=== PATIENT | male | born 1960 | race Caucasian/White ===

== ENCOUNTER 2025-06-11 09:43 | Outpatient (CLI) | payer OTHER, SELFPAY ==
--- OUTSIDE RECORDS SUMMARY | 2025-06-11 09:48 | XMS_ITS | Encounter Summary ---
Author Organization [employer] ([place], [place], [place], [place], [place]) Address [address] [place] [address] Care Team Providers Care Manager Personal Name Role Phone Unavailable Primary Care Provider Unavailabl e Encounter Details Date Type Department Care Team (Late st Contact Info) Description 01/24/2019 Transcribed Document [facility] [place] [address] [place] [address] ProviderRod MD [address] [place] [address] Social History Tobacco Use Types Packs/Day Years Used Date Smoking Tobacco: Never Assessed Sex and Gender Information Value Date Recorded Sex Assigned at Male 01/26/2022 5:05 PM CDT Legal Sex Male 5:05 PM CDT Gender Identity Male 01/26/2022 5:05 PM CDT Sexual Orientation Not on file documented as of this encounter Miscellaneous Notes * Cerner Conversion Note - Rod Hills MD - 01/24/2019 11:45 AM CDT Pre Procedure Adult Entered On: 01/24/2019 11:51 EDT Performed On: 01/24/2019 11:45 EDT by Bonnie Steven Rn Height and Weight, Clinical Dosing Height Source : Stated Height Entry Format : [place] Height, Feet : 5 ft(Converted to: 152 cm, 60 Inch) Height, Inches : 6 Inch(Converted to: 0 ft 6 Inch, 15.24 cm) Clinical Height : 167.64 cm Weight Source : Standing scale Weight Entry Format : [place] Clinical Dosing Weight : 83 kg Weight, Pounds : 182.6 lb Body Surface Area (BSA) : 1.93 m2 Body Mass Index : 29.5 kg/m2 (HI) [place] Body Weight : 63 kg Bonnie Steven Rn - 01/24/2019 11:45 EDT Health Histories Smoking Status : Former smoker, quit more than 30 days ago Smokeless Tobacco Status : Never Bonnie Steven Rn - 01/24/2019 11:45 EDT Social History (As Of: 01/24/2019 11:51:14 EDT) Tobacco: Former smoker, quit more than 30 days ago Smoking Status. (Last Updated: 08/09/2018 13:13:56 EST by Ijeoma Gonzalez RN) Alcohol: Alcohol Use History No. (Last Updated: 08/09/2018 13:14:01 EST by Ijeoma Gonzalez RN) Substance Abuse: Drug Use Hx: No. Use in Last 12 Months: No. (Last Updated: 08/09/2018 13:14:07 EST by Ijeoma Gonzalez RN) Nutrition/Health: Caffeine intake amount: 2 cans daily. (Last Updated: 08/09/2018 13:14:15 EST by Ijeoma Gonzalez RN) Infectious Disease History Infectious Disease History : Chicken pox/Shingles, Influenza, Measles, Mumps Fever/Chills Last 48 Hours : No Travel To Regions with Travel Advisories : No Travel Outside [place] Within Last 30 Days : No Contact With Traveler to Advisory Region : No Tuberculosis Symptoms : None Bonnie Steven Rn - 01/24/2019 11:45 EDT Anesthesia/Transfusion History Family History of Anesthesia Reaction : No prior transfusion(s) Transfusion History : Prior anesthesia reaction Family History of Anesthesia Reaction : None Bonnie Steven Rn - 01/24/2019 11:45 EDT Functional Assessment Living Situation : Home Patient Lives With : Alone Current Home Treatments : CPAP Bonnie Steven Rn - 01/24/2019 11:45 EDT Psychosocial History Currently in Unsafe Situation : No Tried to Harm Yourself in the Past? : No Thoughts of Harming/Killing Yourself : No Bonnie Steven Rn - 01/24/2019 11:45 EDT Advance Directive Patient has Advance Directive *Q : No, patient refuses Advance Directive information Bonnie Steven Rn - 01/24/2019 11:45 EDT Teaching/Learning Assessment Barriers To Learning : None evident Individuals Taught : Patient Readiness to Learn : Cooperative Highest Level of Education : High school Baseline Knowledge of Topic : Good Readiness to Learn : Explanation, Printed materials Learning Style Preferences Patient : Printed materials, Verbal explanation Learning Style Preferences Family : Printed materials, Verbal explanation Bonnie Steven Rn - 01/24/2019 11:45 EDT General Info Want Family/Rep/Phys Notified of Admit : Yes Name/Contact Info Fam/Rep Notified Adm : na Name/Contact Info Physician Notified Adm : Tyron Downs Emergency Contact #1 : Lena Olvera Emergency Contact #1 Phone Number : [phone] Emergency Contact #1 Relationship : life partner Emergency Contact #2 : na Emergency Contact #2 Phone Number : na Emergency Contact #2 Relationship : na Primary Language : Gambian Communication Barrier : None Bonnie Steven Rn - 01/24/2019 11:45 EDT Sleep Apnea Risk Assmt BiPAP/CPAP Ordered for Home Use : Yes Hx of Obstructive Sleep Apnea Diagnosis : Yes BiPAP/CPAP Used at Home : Yes Age over 50 Years Old : Yes Gender Male : Yes Bonnie Steven Rn - 01/24/2019 11:45 EDT Gerald Scale Gerald Sensory Perception : No impairment Gerald Moisture : Rarely moist Gerald Activity : Walks frequently Gerald Mobility : No limitation Gerald Nutrition : Adequate Gerald Friction and Shear : No apparent problem Gerald Score : 22 Bonnie Steven Rn - 01/24/2019 11:45 EDT Pain Assessment Pain Assessment : Initial assessment Pain Scale Goal : 0 Pain Scale Used : 0-10 Scale Bonnie Steven Rn - 01/24/2019 11:45 EDT Fall Risk Scales ABCs Fall Injury Risk Identification : None TRAN Hx Falls Immediate/Within 3 Months : No Tran Secondary Diagnosis : No TRAN Use of Ambulatory Aid : None TRAN IV Therapy or IV Access : Yes Tran Gait/Transferring : Normal, bedrest, immobile Tran Mental Status : Oriented to own ability Tran Fall Risk Score : 20 TRAN Fall Scale Risk Level : 0-24 Low Risk [place] Fall Interventions : Adequate lighting, Bed in low position, Upper side-rails up, Wheels locked Bonnie Steven Rn - 01/24/2019 11:45 EDT Valuables and Belongings Valuables and Belongings : Clothing Clothing : Common streetwear Clothing Disposition : Bedside Bonnie Steven Rn - 01/24/2019 11:45 EDT Pain Scale Intensity : 0 Bonnie Steven Rn - 01/24/2019 11:45 EDT Image 4 - Images currently included in the form version of this document have not been included in the text rendition version of the form. documented in this encounter Plan of Treatment Not on file documented as of this encounter Visit Diagnoses Not on filedocumented in this encounter
--- OUTSIDE RECORDS SUMMARY | 2025-06-11 09:48 | XMS_ITS | Encounter Summary ---
Author Organization [employer] ([place], [place], [place], [place], [place]) Address [address] [place] [address] Care Team Providers Care Client Care Manager Name Role Phone Unavailable Primary Care Provider Unavailabl e Encounter Details Date Type Department Care Team (Late st Contact Info) Description 06/13/2019 Transcribed Document [facility] [place] Family Medicine [address] [place] [address] ProviderRod MD [address] [place] [address] Social History Tobacco Use Types [...] Conversion Note - Rod Hills MD - 06/13/2019 12:35 PM PIPE BOWL PAINT TRIMMER Pre Procedure Adult Entered On: 06/13/2019 12:40 EST Performed On: 06/13/2019 12:35 EST by BRENDAN CLEMENTS RN Height and Weight, Clinical Dosing Height Source : Stated Height Entry Format : [place] Height, Feet : 5 ft(Converted to: 152 cm, 60 Inch) Height, Inches : 6 Inch(Converted to: 0 ft 6 Inch, 15.24 cm) Clinical Height : 167.64 cm Weight Source : Standing scale Weight Entry Format : [place] Clinical Dosing Weight : 82.9 kg Weight, Pounds : 182 lb Weight, Ounces : 6 oz Body Surface Area (BSA) : 1.92 m2 Body Mass Index : 29.5 kg/m2 (HI) [place] Body Weight : 63 kg BRENDAN CLEMENTS RN - 06/13/2019 12:35 EST Health Histories Smoking Status : Former smoker, quit more than 30 days ago Smokeless Tobacco Status : Never BRENDAN CLEMENTS RN - 06/13/2019 12:35 EST Social History (As Of: 06/13/2019 12:40:36 EST) Tobacco: Former smoker, quit more than 30 [...] Region : No Tuberculosis Symptoms : None BRENDAN CLEMENTS RN - 06/13/2019 12:35 EST Anesthesia/Transfusion History Family History of Anesthesia Reaction : No prior transfusion(s) Transfusion History : Prior anesthesia reaction Family History of Anesthesia Reaction : None BRENDAN CLEMENTS RN - 06/13/2019 12:35 EST Functional Assessment Living Situation : Home Current Home Treatments : Apnea monitoring BRENDAN CLEMENTS RN - 06/13/2019 12:35 EST [place] Suicide Severity Rating Scale (C-SSRS) CSSRS Past Month Wish to be : No CSSRS Past Month Suicidal Thoughts : No CSSRS Lifetime Suicide Behavior : No Suicide Severity Rating Score : 0 Suicide Severity Rating : No Additional Care Required at this time BRENDAN CLEMENTS RN - 06/13/2019 12:35 EST Psychosocial History Currently in Unsafe Situation : No BRENDAN CLEMENTS RN - 06/13/2019 12:35 EST Advance Directive Patient has Advance Directive *Q : No, patient refuses Advance Directive information BRENDAN CLEMENTS RN - 06/13/2019 12:35 EST General Info Want Family/Rep/Phys Notified of Admit : No Emergency Contact #1 : Pabloanamaria Heriberto Emergency Contact #1 Phone Number : here Emergency Contact #1 Relationship : sister Emergency Contact #2 : none Emergency Contact #2 Phone Number : none Emergency Contact #2 Relationship : none Chief Complaint : Abd pain Information Obtained From : Patient Primary Language : Montenegrin Communication Barrier : None BRENDAN CLEMENTS RN - 06/13/2019 12:35 EST Sleep Apnea Risk Assmt BiPAP/CPAP Ordered for Home Use : Yes Hx of Obstructive Sleep Apnea Diagnosis : Yes BiPAP/CPAP Used at Home : Yes Age over 50 Years Old : Yes Gender Male : Yes BRENDAN CLEMENTS RN - 06/13/2019 12:35 EST Gerald Scale Gerald Sensory Perception : No impairment Gerald Moisture : Rarely moist Gerald Activity : Walks frequently Gerald Mobility : No limitation Gerald Nutrition : Excellent Gerald Friction and Shear : No apparent problem Gerald Score : 23 BRENDAN CLEMENTS RN - 06/13/2019 12:35 EST Fall Risk Scales ABCs Fall Injury Risk [...] Scale Risk Level : 0-24 Low Risk [place] Fall Interventions : Adequate lighting, Assistive devices within reach, Bed in low position, Call device within reach, Fall prevention handout/education per facility policy, Frequent orientation to call device, Frequent orientation to surroundings, Hourly comfort/safety rounds, Personal items within reach, Reinforced to call for assistance before getting out of bed, Room free of clutter/spills, Upper side-rails up, Wheels locked, Wires/Cords secured Fall Moderate to High Risk Interventions : 1:1 observation Fall Risk Scale Calc Temp : 0 BRENDAN CLEMENTS RN - 06/13/2019 12:35 EST Valuables and Belongings Valuables and Belongings : Clothing Clothing : Common streetwear Clothing Disposition : Bedside BRENDAN CLEMENTS RN - 06/13/2019 12:35 EST Electronically signed by [facility] Conversion Staff Toxicologist Cerner at 11/18/2022 8:16 AM CDT documented in this encounter Plan of Treatment Not on file documented as of this encounter Visit Diagnoses Not on filedocumented in this encounter
--- OUTSIDE RECORDS SUMMARY | 2025-06-11 09:48 | XMS_ITS | Encounter Summary ---
Author Organization [employer] ([place], [place], [place], [place], [place]) Address [address] [place] [address] Care Team Providers Care Retail Key Holder Name Role Phone Unavailable Primary Care Provider Unavailabl e Encounter Details Date Type Department Care Team (Late st Contact Info) Description 08/09/2018 Transcribed Document [facility] [place] Family Medicine [facility] [place] [address] ProviderRod MD [address] [place] [id number] Social History Tobacco Use Types Packs/Day Years Used Date Smoking Tobacco: Never Assessed Sex and Gender Information Value Date Recorded Sex Assigned at Male 01/26/2022 5:05 PM CDT Legal Sex Male 5:05 PM CDT Gender Identity Male 01/26/2022 5:05 PM CDT Sexual Orientation Not on file documented as of this encounter Miscellaneous Notes * Cerner Conversion Note - Rod Hills MD - 08/09/2018 1:50 PM PRODUCTION OFFICER [address] , [place] [address] Patient Copy Patient Information: Name: JULIO OWEN Current Date: 08/09/2018 13:50:55 : 1960 Patient Address: [address] [place] [id number] Patient Attending Physician: PRECIOUS GALARZA MD-REGINALDO Primary Care Provider: ELY NASH MD-[facility] Primary Care Provider Discharge Diagnosis: Weight on Admission: 186 lb, 0 oz Comment: Discharge Instructions: Immunizations Documented During Stay: No Immunizations Found Heart Failure Discharge Instructions (if any): Stroke Related Discharge Instructions (if any): Warfarin Related Discharge Instructions (if any): Final Medication List: Other Medications atropine/hyoscyamine/PB/scopolamine () Oral four times a day (before meals and at bedtime). bifidobacterium-lactobacillus (Probiotic Formula oral capsule) Oral Every Day. clopidogrel (clopidogrel 75 mg oral tablet) 1 Tablet(s) Oral Every Day. multivitamin (Multi Vitamin+) omega-3 polyunsaturated fatty acids (Fish Oil) Oral. zolpidem At Bedtime. Patient Allergies: No Known Allergies Medication Instructions: Take your medications faithfully. Do NOT skip medication. Do NOT stop taking medications without the direction of a physician. Carry a list of your medications with you at all times, and take this medication list with you to your first follow up visit. Report any side effects. Avoid herbal remedies unless discussed with your physician. As part of your treatment plan, your physician may have prescribed a limited course of a controlled substance. This medication may be given to help people with moderate or severe pain or for other medical conditions, but there are risks involved with treatment. Common side effects may include nausea, constipation, drowsiness, sweating, itching, dry mouth, and rash. More serious side effects may include cognitive and motor impairment, like problems with thinking, concentrating, alertness, and movement (e.g. slowed reflexes), and driving and operating heavy machinery can be dangerous. It is important for you to talk to your physician if you have these side effects or questions. These controlled substances can produce physical dependence and be habit-forming if taken for an extended period of time, which means that the body has gotten used to them and may experience withdrawal symptoms if they are abruptly stopped. Withdrawal symptoms can include runny nose, sweating, goose bumps, diarrhea, abdominal cramping, rapid heartbeat, difficulty sleeping, and nervousness. Patient education materials: Endoscopic Retrograde Cholangiopancreatography (ERCP), Care After Refer to this sheet in the next few weeks. These instructions provide you with information on caring for yourself after your procedure. Your health care provider may also give you more specific instructions. Your treatment has been planned according to current medical practices, but problems sometimes occur. Call your health care provider if you have any problems or questions after your procedure. WHAT TO EXPECT AFTER THE PROCEDURE After your procedure, it is typical to feel: ??? Soreness in your throat. ? Sick to your stomach (nauseous). ? Bloated. ??? Dizzy. ? Fatigued. HOME CARE INSTRUCTIONS ??? Have a friend or family member stay with you for the first 24 hours after your procedure. ??? Start taking your usual medicines and eating normally as soon as you feel well enough to do so or as directed by your health care provider. SEEK MEDICAL CARE IF: ??? You have abdominal pain. ? You develop signs of infection, such as: ? ? Chills. ? ? Feeling unwell. ? SEEK IMMEDIATE MEDICAL CARE IF: ??? You have difficulty swallowing. ??? You have worsening throat, chest, or abdominal pain. ??? You vomit. ??? You have bloody or very black stools. ??? You have a fever. This information is not intended to replace advice given to you by your health care provider. Make sure you discuss any questions you have with your health care provider. Document Released: 05/08/2014 Document Reviewed: 05/08/2014 [employer] Interactive Patient Education ? 2017 [employer] CIGARETTE SMOKING: The facts are clear, cigarette smoking will shorten your life. Smoking can cause many illnesses along the way. As a healthcare provider, we recommend that you stop smoking. Assistance with quitting is available by contacting 2-764-QFUX-NOW. This is a free resource providing counseling, support, and referral. Or you may contact your personal physician. STROKE is an EMERGENCY [employer] ACT F.A.S.T! FACE ?? Facial droop ?? Uneven smile ARM ?? Arm numbness ?? Arm weakness SPEECH ?? Slurred speech ?? Difficulty speaking or understanding TIME ?? Call 911 and get to the hospital immediately Have the ambulance go to the nearest stroke center. STROKE Risk Factors High blood pressure High cholesterol Heart Disease Diabetes Smoking Heavy alcohol use Physical inactivity and obesity Atrial Fibrillation (irregular heartbeat) Family history of stroke Reminder: Be sure to sign up for the [employer] patient portal, which gives you 21/02 access to your medical information ??? including these discharge instructions ??? using your computer, smartphone, or tablet. Just go to [facility] to get started. Questions? Call . [facility] would like to thank you for allowing us to assist you with your healthcare needs. BRAYDEN Weiner BENJAMIN DAV, (or insurance claim representative) have received the above patient education materials/instructions and have verbalized understanding: Patient Signature _ Date/Time Patient Residential Construction Instructor Signature (if needed) Date/Time Clinician/Hospital Residential Construction Instructor Signature (if needed) Date/Time Electronically signed by Alpa, [facility] Conversion Corporate Communications Associate Cerner at 11/18/2022 7:50 AM CDT documented in this encounter Plan of Treatment Not on file documented as of this encounter Visit Diagnoses Not on filedocumented in this encounter
--- OUTSIDE RECORDS SUMMARY | 2025-06-11 09:48 | XMS_ITS | Encounter Summary ---
Author Organization [employer] ([place], [place], [place], [place], [place]) Address [address] [place] [address] Care Team Providers Care Sales Agent Pest Control Service Name Role Phone Unavailable Primary Care Provider Unavailabl e Encounter Details Date Type Department Care Team (Late st Contact Info) Description 06/13/2019 Transcribed Document [facility] [place] [facility] [place] [address] ProviderRod MD [address] [place] [id number] Social History Tobacco Use Types Packs/Day Years Used Date Smoking Tobacco: Never Assessed Sex and Gender Information Value Date Recorded Sex Assigned at Male 01/26/2022 5:05 PM CDT Legal Sex Male 5:05 PM CDT Gender Identity Male 01/26/2022 5:05 PM CDT Sexual Orientation Not on file documented as of this encounter Miscellaneous Notes * Cerner Conversion Note - Rod Hills MD - 06/13/2019 2:31 PM TREATMENT PLANT OPERATOR Patient: JULIO OWEN Age: 59 years Sex: Male : 1960 Associated Diagnoses: None Author: PRECIOUS VALDES MD-[facility] Consultation/H&P Date of Service: June 13, 2019 Handle Machine Operator: Precious Valdes II, M.D. History of Present Illness: Mr. Owen is a 59-year-old gentleman with chronic right upper quadrant abdominal pain and sphincter of Oddi dysfunction. The patient has had clinical improvement with prior biliary sphincterotomy. His last ERCP was in December 2018. The patient has had recurrence of pain with some itching. He reports bloating, pain and occasional nausea. He has some gassiness. He has been on MiraLAX plus Konsyl for his obstipation. He also takes Creon and hyoscyamine. He has been on buspirone. His liver and pancreatic chemistries have been normal. He did get relief with ERCP in August 2018. Physical Examination: General: Well-developed well-nourished patient in no acute distress HEENT: EOMI anicteric Neck: Supple no lymphadenopathy Chest: Clear to auscultation Cardiovascular: Regular rate and rhythm Abdomen: Normoactive bowel sounds, mild distention, tenderness in the right upper quadrant, no rebound or guarding, no masses, palpable stool and gas present Extremities: No edema Skin: No rashes or ecchymosis Neurologic: Nonfocal Labs: Normal liver and high-grade chemistries Impression/Plan: 1. Recurrent right upper quadrant abdominal pain with history of sphincter of Oddi dysfunction. I will repeat ERCP since he has not achieved relief since his sphincterotomy in August 2018. We have discussed the risks benefits and alternatives. documented in this encounter Plan of Treatment Not on file documented as of this encounter Visit Diagnoses Not on filedocumented in this encounter
--- OUTSIDE RECORDS SUMMARY | 2025-06-11 09:48 | XMS_ITS | Encounter Summary ---
Author Organization [employer] ([place], [place], [place], [place], [place]) Address [address] [place] [address] Care Team Providers Care Land Measurer Name Role Phone Unavailable Primary Care Provider Unavailabl e Encounter Details Date Type Department Care Team (Late st Contact Info) Description 08/09/2018 Transcribed Document [facility] [place] [facility] [place] [address] ProviderRod MD [address] [place] [address] Social History Tobacco Use Types [...] Note - Rod Hills MD - 08/09/2018 3:52 PM ART CRITIC Patient Education Materials Follows: Endoscopic Retrograde Cholangiopancreatography (ERCP), Care After Refer [...] provider. Document Released: 05/08/2014 Document Reviewed: 05/08/2014 Else[employer] Interactive Patient Education ? 2017 [employer] documented in this encounter Plan of Treatment Not on file documented as of this encounter Visit Diagnoses Not on filedocumented in this encounter
--- OUTSIDE RECORDS SUMMARY | 2025-06-11 09:48 | XMS_ITS | Referral Summary ---
Author Organization [facility] ([place], [place], [place], [place], [place]) Address [address] [place] [address] Care Team Providers Care Sales Performance Analyst Name Role Phone Unavailable Primary Care Provider Unavailabl e Social History Tobacco Use Types Packs/Day Years Used Date Smoking Tobacco: Never Assessed Sex and Gender Information Value Date Recorded Sex Assigned at Male 01/26/2022 5:05 PM CDT Legal Sex Male 5:05 PM CDT Gender Identity Male 01/26/2022 5:05 PM CDT Sexual Orientation Not on file Plan of Treatment Not on file
--- OUTSIDE RECORDS SUMMARY | 2025-06-11 09:48 | XMS_ITS | Encounter Summary ---
Author Organization [employer] ([place], [place], [place], [place], [place]) Address [address] [place] [address] Care Team Providers Care Call Specialist Name Role Phone Unavailable Primary Care Provider Unavailabl e Encounter Details Date Type Department Care Team (Late st Contact Info) Description 06/13/2019 Transcribed Document [facility] [place] Family Medicine [address] [place] [address] ProviderRod MD [address] [place] [address] Social History Tobacco Use Types [...] Note - Rod Hills MD - 06/13/2019 2:30 PM DIETARY SERVICES DIRECTOR [facility] PreOp Summary Primary Physician: PRECIOUS GALARZA MD-GAE Finalized Date/Time: 06/13/19 13:04:24 Pt. Name: JULIO QUINN /Sex: 1960 Male Med Rec #: [id number] Physician: PRECIOUS GALARZA MD-GAE Financial #: [id number] Pt. Type: O Room/Bed: EEN/15 Admit/Disch: 06/13/19 11:46:00 - Institution: [facility] PreOp Case Times Entry 1 In Preop 06/13/19 12:30:00 Ready for Holding n/a Room Patient Ready for 06/13/19 13:02:00 Surgery Patient Out of Preop 06/13/19 13:04:00 Patient Out of n/a Holding Room [facility] PreOp Case Times Audit 06/13/19 13:04:20 Chemical Production Technician: MELINDA Modifier: BESTSH <+> 1 Patient Out of Preop <+> 1 Patient Ready for Surgery Finalized By: BRENDAN CLEMENST RN Document Signatures Signed By: BRENDAN CLEMENTS RN 06/13/19 13:04 Electronically signed by Alpa [facility] Conversion Drug Inspector Cerner at 11/18/2022 7:56 AM CDT documented in this encounter Plan of Treatment Not on file documented as of this encounter Visit Diagnoses Not on filedocumented in this encounter
--- OUTSIDE RECORDS SUMMARY | 2025-06-11 09:48 | XMS_ITS | Encounter Summary ---
Author Organization [employer] ([place], [place], [place], [place], [place]) Address [address] [place] [address] Care Team Providers Care Manager Bridge Name Role Phone Unavailable Primary Care Provider Unavailabl e Encounter Details Date Type Department Care Team (Late st Contact Info) Description 08/09/2018 Transcribed Document [facility] Family Medicine [facility] [place] [address] ProviderRod MD [address] [place] [id number] Social History Tobacco Use Types Packs/Day [...] Note - Rod Hills MD - 08/09/2018 3:51 PM CRIMINAL RESEARCHER Nursing Discharge Summary Entered On: 08/09/2018 15:52 EST Performed On: 08/09/2018 15:51 EST by GHADA NICHOLAS RN Discharge Documentation Discharge Date/Time : 08/09/2018 15:51 EST Patient Disposition, General : Discharge Discharge To : Home without planned follow-up Mode Of Departure, General Discharge : Wheelchair Accompanied By, Discharge : Sibling IV Discontinued : Yes Personal Belongings With Patient : Yes Prescriptions Given to Patient : Yes Discharge Instructions Reviewed With, Opportunity For Questions Given : Patient, Sibling Number of Prescriptions Given : 1 Teaching Method : Printed materials Teaching Evaluation : Verbalizes understanding GHADA NICHOLAS RN - 08/09/2018 15:51 EST Electronically signed by [facility] Conversion Instrument Adjuster Cerner at 11/18/2022 7:49 AM CDT documented in this encounter Plan of Treatment Not on file documented as of this encounter Visit Diagnoses Not on filedocumented in this encounter
--- OUTSIDE RECORDS SUMMARY | 2025-06-11 09:48 | XMS_ITS | Encounter Summary ---
Author Organization [email or web address] ([place], [place], [place], [place], [place]) Address [address] [place] [address] Care Team Providers Care Human Resource Consultant Name Role Phone Unavailable Primary Care Provider Unavailabl e Encounter Details Date Type Department Care Team (Late st Contact Info) Description 08/09/2018 Transcribed Document [facility] Family Medicine [facility] [place] [address] ProviderRod MD [address] [place] [id number] Social History Tobacco Use Types Packs/Day Years Used Date Smoking Tobacco: Never Assessed Sex and Gender Information Value Date Recorded Sex Assigned at Male 01/26/2022 5:05 PM CDT Legal Sex Male 5:05 PM CDT Gender Identity Male 01/26/2022 5:05 PM CDT Sexual Orientation Not on file documented as of this encounter Miscellaneous Notes * Cerner Conversion Note - Rod ProviderMD - 08/09/2018 1:53 PM POULTICE MACHINE OPERATOR GLENN Sawant IntraOp Summary Primary Physician: PRECIOUS VALDES MD-GAE Finalized Date/Time: 08/09/18 15:08:31 Pt. Name: JULIO OWEN /Sex: 1960 Male Med Rec #: [id number] Physician: PRECIOUS VALDES MD-GAE Financial #: [id number] Pt. Type: O Room/Bed: [facility] Admit/Disch: 08/09/18 12:20:00 - [place] [facility] - Case Attendance Entry 1 Entry 2 Entry 3 Case Attendee PRECIOUS VALDES WALLACE, HEATHER, VIET AGUILAR Role Performed Surgeon/Proceduralist, [employer] Team Member, First Community Engagement Coordinator First Time In 08/09/18 13:47:00 08/09/18 13:47:00 08/09/18 13:47:00 Time Out 08/09/18 14:20:00 08/09/18 14:20:00 08/09/18 14:20:00 Procedure Endoretrogradecholangiop Endoretrogradecholangiop Endoretrogradecholangiop ancreatography, ancreatography, ancreatography, Sphincterotomy, Biliary Sphincterotomy, Biliary Sphincterotomy, Biliary Duct Balloon Sweep, Duct Balloon Sweep, Duct Balloon Sweep, Esophageal Biopsy Esophageal Biopsy Esophageal Biopsy Other Attendee Superficial Wound Closed By: Last Modified By: MOISÉS ARRIAGA, MOISÉS FRY, MOISÉS FRY RN 08/09/18 14:20:58 08/09/18 14:20:58 08/09/18 14:20:58 Entry 4 Entry 5 Case Attendee BOBBI LINDER, ALYSIA JARAMILLO Role Performed MANAGER QUALITY SYSTEMS/Nurse Shellac Polisher Scrub, First Time In 08/09/18 13:47:00 08/09/18 13:47:00 Time Out 08/09/18 14:20:00 08/09/18 14:20:00 Procedure Endoretrogradecholangiop Endoretrogradecholangiop ancreatography, ancreatography, Sphincterotomy, Biliary Sphincterotomy, Biliary Duct Balloon Sweep, Duct Balloon Sweep, Esophageal Biopsy Esophageal Biopsy Other Attendee Superficial Wound Closed By: Last Modified By: MOISÉS ARRIAGA, MOISÉS FRY RN 08/09/18 14:20:58 08/09/18 14:20:58 [facility] - Case Attendance Audit 08/09/18 14:20:58 Oil Well Driller: KAY Modifier: KAY 1 <+> Time Out 1 <*> Procedure Endoretrogradecholangiopancreatography, Sphincterotomy, Biliary Duct Balloon Sweep, Esophageal Biopsy 2 <+> Time Out 2 <*> Procedure Endoretrogradecholangiopancreatography, Sphincterotomy, Biliary Duct Balloon Sweep, Esophageal Biopsy 3 <+> Time Out 3 <*> Procedure Endoretrogradecholangiopancreatography, Sphincterotomy, Biliary Duct Balloon Sweep, Esophageal Biopsy 4 <+> Time Out 4 <*> Procedure Endoretrogradecholangiopancreatography, Sphincterotomy, Biliary Duct Balloon Sweep, Esophageal Biopsy 5 <+> Time Out 5 <*> Procedure Endoretrogradecholangiopancreatography, Sphincterotomy, Biliary Duct Balloon Sweep, Esophageal Biopsy 08/09/18 14:18:23 Oil Well Driller: KAY Modifier: BRYANTHE 1 <*> Procedure Endoretrogradecholangiopancreatography, Sphincterotomy, Biliary Duct Balloon Sweep 2 <*> Procedure Endoretrogradecholangiopancreatography, Sphincterotomy, Biliary Duct Balloon Sweep 3 <*> Procedure Endoretrogradecholangiopancreatography, Sphincterotomy, Biliary Duct Balloon Sweep 4 <*> Procedure Endoretrogradecholangiopancreatography, Sphincterotomy, Biliary Duct Balloon Sweep 5 <*> Procedure Endoretrogradecholangiopancreatography, Sphincterotomy, Biliary Duct Balloon Sweep 08/09/18 14:14:02 Oil Well Driller: KAY Modifier: MONSEANTHE 1 <*> Procedure Endoretrogradecholangiopancreatography, Sphincterotomy 2 <*> Procedure Endoretrogradecholangiopancreatography, Sphincterotomy 3 <*> Procedure Endoretrogradecholangiopancreatography, Sphincterotomy 4 <*> Procedure Endoretrogradecholangiopancreatography, Sphincterotomy 5 <*> Procedure Endoretrogradecholangiopancreatography, Sphincterotomy 08/09/18 14:09:14 Oil Well Driller: KAY Modifier: BRYANTHE 1 <*> Procedure Endoretrogradecholangiopancreatography 2 <*> Procedure Endoretrogradecholangiopancreatography 3 <*> Procedure Endoretrogradecholangiopancreatography 4 <*> Procedure Endoretrogradecholangiopancreatography 5 <*> Procedure Endoretrogradecholangiopancreatography 08/09/18 13:50:08 Oil Well Driller: KAY Modifier: KAY <+> 1 Procedure 2 <*> Procedure Endoretrogradecholangiopancreatography 3 <*> Procedure Endoretrogradecholangiopancreatography 4 <*> Procedure Endoretrogradecholangiopancreatography 5 <*> Procedure Endoretrogradecholangiopancreatography [facility] - Case Times Entry 1 Patient In Room Time 08/09/18 13:47:00 Out Room Time 08/09/18 14:20:00 Anesthesia Start Time 08/09/18 13:47:00 Stop Time 08/09/18 14:20:00 Surgery / Procedure Times Start Time 08/09/18 13:53:00 Stop Time 08/09/18 14:19:00 Last Modified By: MOISÉS ARRIAGA RN 08/09/18 14:20:57 [facility] - Case Times Audit 08/09/18 14:20:57 Oil Well Driller: BRYANTHE Modifier: BRYANTHE <+> 1 Out Room Time <+> 1 Stop Time 08/09/18 14:19:41 Oil Well Driller: BRYANTHE Modifier: BRYANTHE <+> 1 Stop Time 08/09/18 13:53:49 Oil Well Driller: BRYANTHE Modifier: BRYANTHE <+> 1 Start Time [facility] - Cautery Entry 1 ESU Identification Cautery Type Monopolar ESU Cautery Type ENDO CUT Comments ID Number ERBE ID Type Hospital Number Cautery Settings Cut Setting 2 Coag Setting 25 ESU Grounding Pad Ground Pad Type Argon Grounding Pad Type Bovie Comment Grounding Pad Site Right thigh Grounding Pad MARGARET, ALYSIA T Applied By Grounding Pad Site Dry, Intact Skin Condition Before Cautery Grounding Pad Site Unchanged Skin Condition After Cautery Last Modified By: MOISÉS ARRIAGA RN 08/09/18 14:10:04 [facility] - Cultures and Spec Summary Entry 1 Cultrures and Specimens Specimen Ordered: Yes Specimens Types Pathology Specimen(s) Labeled Lab and Sent to Last Modified By: MOISÉS ARRIAGA RN 08/09/18 14:19:36 General Comments: Gastroesophageal Junction Biopsy- Specimen verified by Dr. Valdes. [facility] - Delays Entry 1 Delay Reason Other Duration 0 Minute(s) Comment NO DELAY Last Modified By: MOISÉS ARRIAGA RN 08/09/18 13:56:18 [facility] - Departure from OR Entry 1 Integumentary Assessment Integumentary WDL Assessment WDL Transfer/Handoff Transfer to PACU Phase I Handoff Reported to GHADA NICHOLAS RN Post-op Transport Stretcher/Serena Via Patient Transport MOISÉS ARRIAGA RN, Accompanied by BOBBI LINDER CRNA Last Modified By: MOISÉS ARRIAGA RN 08/09/18 14:20:54 [facility] - Endoscopy Details Entry 1 Abdomen Procedure Soft, Non-Tender, Assessment Non-distended Procedure Abdomen 08/09/18 13:49:00 Assessment D/T Radio Frequency Ablation Last Modified By: MOISÉS ARRIAGA RN 08/09/18 13:50:05 [facility] - Fire Risk Assessment Entry 1 Fire Info Surgical Site or 1- Yes Incision Above the Xyphoid Open O2 Source 1- Yes (Mask or Cannula) Available Ignition 1- Yes (ESU, Laser, Light Source) Fire Risk 3 Assessment Score Fire Score Fire Risk Yes Assessment Complete Fire Risk MOISÉS ARRIAGA RN Assessment Verified By Fire Risk 08/09/18 13:50:00 Assessment Verified Date/Time Fire Risk High Risk Protocol Yes Implemented Standard Fire Yes Safety Precautions Followed Last Modified By: MOISÉS ARRIAGA RN 08/09/18 13:50:13 [facility] Endo - General Case Convex Grinder 1 Case Information OR Endo 06 E Case Level 1 Room Verified Yes Wound Class II - Clean-Contaminated Specialty SN Gastroenterology Anesthesia Type MAC ASA Class 3 Diagnosis Preop Diagnosis RUQ Pain Postop Same As Preop No Postop Diagnosis Sludge, Sphincter of Nabil Last Modified By: MOISÉS ARRIAGA RN 08/09/18 14:17:39 E Endo - General Case Data Audit 08/09/18 14:17:39 Oil Well Driller: KAY Modifier: BRYANTHE 1 <*> Postop Diagnosis Sludge 08/09/18 14:12:17 Oil Well Driller: KAY Modifier: BRYANTHE <+> 1 Postop Diagnosis 08/09/18 13:54:35 Oil Well Driller: KAY Modifier: BRYANTHE 1 <*> OR Endo 04 SJE 1 <+> Specialty 1 <+> ASA Class 1 <+> Anesthesia Type 1 <+> Postop Same As Preop 1 <*> Preop Diagnosis R10.11 1 <+> Room Verified E Endo - Intraoperative Assessment Entry 1 Valid History / Yes Physical in Chart Preoperative Yes Checklist Reviewed/Evaluated Allergies Reviewed Yes Patient is Latex No Sensitive Level of WDL Consciousness (WDL = Alert, Oriented to Person, Place, and Time) Present Upon IVs, ECG monitored Arrival to OR Last Modified By: MOISÉS ARRIAGA RN 08/09/18 13:50:37 [facility] - Intraoperative Equipment Entry 1 Type Scope Equipment Intraop Monitoring Electrocardiogram Three lead placement (ECG) Electrode Placement Blood Pressure Arm, left upper Location Pulse Oximeter Hand, right Probe Site Antiembolic Devices Scopes Flexible Endoscopes ERCP Scope Used Scope Serial [id number] Number/Identificatio n Number Photo/Video Documentation Photo Yes Video No Last Modified By: MOISÉS ARRIAGA RN 08/09/18 13:54:43 [facility] - Medication Admin Entry 1 Medication/Irrigant Isovue-300 50ml - [id number] Time Administered 08/09/18 13:54:00 Route of [id number] Administration Dose Dose 2 Unit of Measure ml Administered By PRECIOUS VALDES MD-GAAnthony Procedure Irrigation Last Modified By: MOISÉS ARRIAGA RN 08/09/18 14:18:05 [facility] - Medication Admin Audit 08/09/18 14:18:05 Oil Well Driller: KAY Modifier: BRYANTHE 1 <*> Medication/Irrigant Isovue-300 50ml - [id number] 1 <+> Dose [facility] - Patient Positioning Entry 1 Procedure Endoretrogradecholangiop ancreatography, Sphincterotomy, Biliary Duct Balloon Sweep, Esophageal Biopsy Body Position Prone Left Arm Position Tucked and padded at side Right Arm Position Tucked and padded at side Left Leg Position Uncrossed, parallel Right Leg Position Uncrossed, parallel Feet Uncrossed Yes Pressure Points Yes Checked Positioning Devices Roll (Other) Pad/Roll Location Under Right Side of Abdomen Positioned By MOISÉS ARRIAGA RN, BOBBI LINDER CRNA Position Verified Positioning Yes Verified by Anesthesia Positioning Yes Verified by Surgeon Last Modified By: MOISÉS ARRIAGA RN 08/09/18 14:18:24 [facility] - Patient Positioning Audit 08/09/18 14:18:24 Oil Well Driller: COURTNEYE Modifier: BRYANTHE 1 <*> Procedure Endoretrogradecholangiopancreatography, Sphincterotomy, Biliary Duct Balloon Sweep 08/09/18 14:14:03 Oil Well Driller: COURTNEYE Modifier: BRYANTHE 1 <*> Procedure Endoretrogradecholangiopancreatography, Sphincterotomy 08/09/18 14:09:15 Oil Well Driller: MONSEANTHE Modifier: BRYANTHE 1 <*> Procedure Endoretrogradecholangiopancreatography [facility] - Sign In Entry 1 Patient, Site, Yes Procedure Identified Surgical Consent Yes Confirmed Surgical Site N/A Marked by person performing procedure Airway Hypothermia Risk No Warming Measures Yes Taken Last Modified By: MOISÉS ARRIAGA RN 08/09/18 13:50:24 [facility] - Sign Out Entry 1 RN Confirmation Surgical Yes Procedure(s) Identified Instrument, Sponge N/A and Sharps Counts Correct/Documented Equipment Problems N/A Documented Specimen Labeled Yes Correctly Urinary Catheter N/A Documented in IView Safety Checklist Yes Elements Complete? RN Sign Out MOISÉS ARRIAGA, RN Signature RN Sign Out 08/09/18 14:20:00 Signature Date/Time Plan of Care Outcome - Fire Risk OUTCOME STATEMENT: Goal met Patient is free from injury related to surgical fire Plan of Care Outcome - Pt Positioning OUTCOME STATEMENT: Goal met Absence of signs and symptoms of positioning injury. Plan of Care Outcome - Skin Prep OUTCOME STATEMENT: Goal met Intraoperative care is consistent with measures to prevent infection Plan of Care Outcome - Xray/Images OUTCOME STATEMENT: Goal met Absence of observable signs or symptoms of radiation injury Plan of Care Outcome - Counts OUTCOME STATEMENT: N/A Absence of signs and symptoms of injury related to extraneous objects Last Modified By: MOISÉS ARRIAGA RN 08/09/18 14:20:44 [facility] - Sign Out Audit 08/09/18 14:20:44 Oil Well Driller: KAY Modifier: KAY <+> 1 RN Sign Out Signature Date/Time <+> 1 Urinary Catheter Documented in IView [facility] - Surgical Procedures Entry 1 Entry 2 Entry 3 Procedure Endoretrogradecholangiop Sphincterotomy Biliary Duct Balloon ancreatography Sweep Modifiers Additional Procedure Description Primary Procedure Yes No No Primary Surgeon PRECIOUS VALDES, PRECIOUS VALDES ROBBINS, EARL GLEN, MD-GAE MD-GAE MD-GAE Start 08/09/18 13:53:00 08/09/18 13:53:00 08/09/18 13:53:00 Stop 08/09/18 14:19:00 08/09/18 14:19:00 08/09/18 14:19:00 Physician States Cecum Reached Anesthesia Type MAC MAC MAC Specialty SN Gastroenterology SN Gastroenterology SN Gastroenterology Wound Class II - Clean-Contaminated II - Clean-Contaminated II - Clean-Contaminated Last Modified By: MOISÉS ARRIAGA, RN MOISÉS ARRIAGA, RN MOISÉS ARRIAGA, RN 08/09/18 14:20:24 08/09/18 14:20:24 08/09/18 14:20:24 Entry 4 Procedure Esophageal Biopsy Modifiers Additional Procedure Description Primary Procedure No Primary Surgeon PRECIOUS VALDES MD-GAE Start 08/09/18 13:53:00 Stop 08/09/18 14:19:00 Physician States Cecum Reached Anesthesia Type MAC Specialty SN Gastroenterology Wound Class II - Clean-Contaminated Last Modified By: MOISÉS ARRIAGA, BARBARA 08/09/18 14:20:34 [facility] - Surgical Procedures Audit 08/09/18 14:20:34 Oil Well Driller: KAY Modifier: BRYANTHE 4 <*> Procedure Esophageal Biopsy 4 <+> Specialty 08/09/18 14:20:24 Oil Well Driller: KAY Modifier: BRYANTHE 1 <*> Procedure Endoretrogradecholangiopancreatography 1 <+> Specialty 2 <*> Procedure Sphincterotomy 2 <+> Specialty 3 <*> Procedure Biliary Duct Balloon Sweep 3 <+> Specialty 08/09/18 14:19:49 Oil Well Driller: KAY Modifier: BRYANTHE <+> 1 Stop <+> 2 Stop <+> 3 Stop <+> 4 Stop 08/09/18 14:18:20 Oil Well Driller: COURTNEYE Modifier: BRYANTHE <+> 4 Procedure <+> 4 Primary Procedure <+> 4 Primary Surgeon <+> 4 Start <+> 4 Wound Class <+> 4 Anesthesia Type 08/09/18 14:13:59 Oil Well Driller: MONSEANTHE Modifier: BRYANTHE <+> 3 Procedure <+> 3 Primary Procedure <+> 3 Primary Surgeon <+> 3 Start <+> 3 Wound Class <+> 3 Anesthesia Type 08/09/18 14:09:10 Oil Well Driller: COURTNEYE Modifier: BRYANTHE <+> 2 Procedure <+> 2 Primary Procedure <+> 2 Primary Surgeon <+> 2 Start <+> 2 Wound Class <+> 2 Anesthesia Type 08/09/18 13:55:19 Oil Well Driller: COURTNEYE Modifier: BRYANTHE <+> 1 Start E Endo - Time Out Entry 1 Procedure to be Endoretrogradecholangiop Performed ancreatography, Sphincterotomy, Biliary Duct Balloon Sweep, Esophageal Biopsy Time Out Time Out Pause Time 08/09/18 13:52:00 All activity Yes suspended (unless life threatening emergency) Team Verbally Correct patient Confirms Information identity, Consent form is present and accurate, Agreement on the procedure to be done, Correct patient position, Relevant images/results properly labeled/appropriately displayed Antibiotic N/A Prophylaxis Administered Or In Progress Within the Last 60 Minutes Beta Gilmar N/A Administered Venous N/A Thromboembolism Prophylaxis Required Anticipated Critical Events Surgeon None expected Last Modified By: MOISÉS ARRIAGA RN 08/09/18 14:18:24 [facility] - Time Out Audit 08/09/18 14:18:24 Oil Well Driller: KAY Modifier: BRYANTHE 1 <*> Procedure to be Performed Endoretrogradecholangiopancreatography, Sphincterotomy, Biliary Duct Balloon Sweep 08/09/18 14:14:03 Oil Well Driller: BRYHONEYE Modifier: BRYANTHE 1 <*> Procedure to be Performed Endoretrogradecholangiopancreatography, Sphincterotomy 08/09/18 14:09:15 Oil Well Driller: BRYANTHE Modifier: BRYANTHE 1 <*> Procedure to be Performed Endoretrogradecholangiopancreatography [facility] - X-Ray and Images Entry 1 X-Ray/Imaging Type Fluoroscopy Fluoroscopy Type C-Arm Recreation Establishment Manager Name VIET LANDEROS Total 1.1 min. Dosage/Exposure Time Last Modified By: MOISÉS ARRIAGA RN 08/09/18 14:17:52 [facility] - X-Ray and Images Audit 08/09/18 14:17:52 Oil Well Driller: KAY Modifier: BRYANTHE <+> 1 Total Dosage/Exposure Time Case Comments <None> Finalized By: MOISÉS ARRIAGA, RN Document Signatures Signed By: MOISÉS ARRIAGA RN 08/09/18 14:21 MOISÉS ARRIAGA RN 08/09/18 15:08 Unfinalized History Date/Time Username Reason for Unfinalizing Freetext Reason for Unfinalizing 08/09/18 15:08 KAY Pantoja Documentation Electronically signed by Alpa [facility] Conversion Social Science Manager Cerner at 11/18/2022 8:05 AM CDT documented in this encounter Plan of Treatment Not on file documented as of this encounter Visit Diagnoses Not on filedocumented in this encounter
--- OUTSIDE RECORDS SUMMARY | 2025-06-11 09:48 | XMS_ITS | Encounter Summary ---
Author Organization [employer] ([place], [place], [place], [place], [place]) Address [address] [place] [address] Care Team Providers Care Production Sorter Name Role Phone Unavailable Primary Care Provider Unavailabl e Encounter Details Date Type Department Care Team (Late st Contact Info) Description 01/24/2019 Transcribed Document [facility] [place] Family Medicine [address] [place] [address] ProviderRod MD [facility]ly [facility] [place] [address] Social History Tobacco Use Types [...] Note - Rod Hills MD - 01/24/2019 1:39 PM CDT [facility]ant PACU Summary Primary Physician: PRECIOUS GALARZA MD-GAE Finalized Date/Time: 01/24/19 14:40:13 Pt. Name: JULIO OWEN /Sex: 1960 Male Med Rec #: [id number] Physician: PRECIOUS GALARZA MD-GAE Financial #: [id number] Pt. Type: O Room/Bed: [facility] Admit/Disch: 01/24/19 11:13:00 - Institution: [facility] PACU Case Times Entry 1 In PACU I 01/24/19 14:02:00 Ready for PACU 01/24/19 14:40:00 Discharge Discharge from PACU 01/24/19 14:40:00 I GLENN Sawant PACU Case Times Audit 01/24/19 14:40:06 Miller Apprentice: YOMAIRA Modifier: SMITDO <+> 1 Ready for PACU Discharge <+> 1 Discharge from PACU I Finalized By: GHADA NICHOLAS, RN Document Signatures Signed By: GHADA NICHOLAS RN 01/24/19 14:40 documented in this encounter Plan of Treatment Not on file documented as of this encounter Visit Diagnoses Not on filedocumented in this encounter
--- OUTSIDE RECORDS SUMMARY | 2025-06-11 09:48 | XMS_ITS | Encounter Summary ---
Author Organization [employer] ([place], [place], [place], [place], [place]) Address [address] [place] [address] Care Team Providers Care Community Advocate Name Role Phone Unavailable Primary Care Provider Unavailabl e Encounter Details Date Type Department Care Team (Late st Contact Info) Description 08/09/2018 Transcribed Document [facility] [place] [facility] [place] [address] ProviderRod MD [address] [place] [address] Social History Tobacco Use Types Packs/Day [...] Note - Rod Hills MD - 08/09/2018 2:20 PM ELECTRICAL SIGN WIRER HELPER DATE OF PROCEDURE: 08/09/2018 REFERRING PHYSICIAN: Dr. Tyron Downs PREOPERATIVE DIAGNOSIS(ES): POSTOPERATIVE DIAGNOSIS(ES): PROCEDURE: Endoscopic retrograde cholangiopancreatography with biliary sphincterotomy, balloon extraction, and cold biopsy. SURGEON: Endoscopist: Ozzie Valdes MD EQUIPMENT: Olympus side-viewing duodenoscope. MEDICATION: MAC sedation. INDICATION: Mr. Olvera is a 58-year-old gentleman, who has had persistent right upper quadrant abdominal pain on the right side with some itching. This can radiate into his back and shoulder blades. He has had moderate belching and some bloating. He reports some nausea. He reports no early satiety. His bowel movements have been manager competitive intelligence in color, but he does take Konsyl fiber supplement and probiotic regularly with normal bowel function. The patient does have a history of sphincter of Oddi dysfunction and had an ERCP more than 10 years ago last. His labs did show normal liver and pancreatic function. He did have a colonoscopy with me in June 2016 and had a small polyp and diverticulosis. He did have the last ERCP in 2004 and cholecystectomy at that time. Cardiac and lung assessment prior to the examination was stable. FINDINGS: The scope was passed directly into the upper esophagus and advanced to the third portion of the duodenum. There was a serrated Z-line with a small salmon-colored tongue of mucosa that was biopsied to rule out Holman's. The stomach and duodenum were grossly normal. The ampulla was well visualized. The pancreatic duct was initially cannulated with a guidewire, but the pancreatogram was not performed. The common bile duct was cannulated with a little difficulty and there was no extravasation of contrast or bile from the biliary system. A cholangiogram was performed and there was a 9-10 mm common bile duct, which was mildly dilated. There was poor extravasation of contrast after contrast injection. There was a normal intrahepatic biliary system. The cystic duct stump was noted and was normal. There were no filling defects. Because of the delayed drainage of contrast, a biliary sphincterotomy was performed. There was excellent extravasation of bile and contrast, and a little bit of sludge/debris (minor choledocholithiasis). A balloon was then placed at the hilum and inflated to 9-12 mm and swept through the biliary system with the passage of mostly baca bile and some minor sludge/debris. The second sweep yielded no further debris. The procedure was ended. IMPRESSION: 1. 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 2. Nonerosive gastroesophageal reflux disease. PLAN: I will follow up the biopsy. The patient should have clinical improvement with the sphincterotomy. I will discuss additional treatment options. I will Have the patient continue when necessary, Konsyl and probiotic (Lactobacillus Reuteri). I will have him initiate FDgard 2 by mouth before meals and Creon 36. Ozzie Valdes M.D. Dict: 08/09/2018 14:20:56 Trans: 08/09/2018 17:21:58 CC1: Ozzie Valdes M.D. CC2: Dr. Tyron Downs Electronically signed by Alpa, [facility] Conversion Clinical Research Manager Cerner at 11/18/2022 7:51 AM CDT documented in this encounter Plan of Treatment Not on file documented as of this encounter Visit Diagnoses Not on filedocumented in this encounter
--- OUTSIDE RECORDS SUMMARY | 2025-06-11 09:48 | XMS_ITS | Clinical Summary ---
Author Organization [facility] Address [address] [place] [address] [place] [address] Care Team Providers Care Telephone Switchboard Operator Name Role Phone Pedro Pablo Limon MD Primary Care Provider [phone] Allergies No known active allergies Medications albuterol sulf 90 mcg/actuation breath activated powder inhaler,sensor 2 Active azelastine 205.5 mcg (0.15 %) nasal spray (ASTELIN) Administer into one or both nostrils. 2 Active clopidogreL 75 mg tablet (PLAVIX) Take 1 tablet (75 mg total) by mouth daily. 2 Active cyanocobalamin (vit B-12) 1,000 mcg tablet Take by mouth. Acti ve dicyclomine 10 mg capsule (BENTYL) 0 Refill(s) 1 Active doxycycline monohydrate 100 mg capsule (MONODOX) 3 Active empagliflozin 10 mg tablet 3 Active famotidine 20 mg tablet (PEPCID) Take 1 tablet (20 mg total) by mouth. 2 Active fluticasone propionate 50 mcg/actuation nasal spray,suspension (FLONASE) Administer 1 spray into one or both nostrils 2 times a day. 2 Active fluticasone fur. 200 mcg-umeclid 62.5 mcg-vilant 25 mcg inhalat.powder Inhale 1 puff daily. 2 Active furosemide 40 mg tablet (LASIX) Take 1 tablet (40 mg total) by mouth 2 times a day. 2 Active gabapentin 300 mg capsule (NEURONTIN) Take 1 capsule (300 mg total) by mouth at bedtime. 1 Active lisinopriL 10 mg tablet (PRINIVIL,ZESTRI L) 8 Active metoprolol succinate ER 50 mg tablet,extended release 24 hr (TOPROL XL) 3 Active pantoprazole 40 mg tablet,delayed release (PROTONIX) 3 Active polyethylene glycol 3350 17 gram/dose oral powder (GLYCOLAX) Take by mouth daily. Active rosuvastatin 20 mg tablet (CRESTOR) 3 Active spironolactone 25 mg tablet (ALDACTONE) 2 Active Hospital, Clinic, or Other Facility Administered Medication Ordered Dose Route Frequency Start Date End Date Status gadobutroL (GADAVIST) (Imaging Agent Solution) solution 15 mmol 15 mmol IV Once 05/18/2023 Active Social History Tobacco Use Types Packs/Day Years Used Date Smoking Tobacco: Former Cigarettes Q uit: 1989 Smokeless Tobacco: Never Comments:quit smoking in 199 0 Alcohol Use Standard Drinks/Week Comments Never 0 (1 standard drink = 0.6 oz pur e alcohol) Sex and Gender Information Value Date Recorded Sex Assigned at Not on file 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 Gender Identity Male 12/30/2022 9:48 PM CDT Sexual Orientation Not on file Last Filed Vital Signs Vital Sign Reading Time Taken Comments Blood Pressure 104/62 05/18/2023 1:33 PM CDT Pulse 59 05/18/2023 1:33 PM CDT Temperature 36.8 C (98.2 F) 01/04/2023 7:59 AM CDT Respiratory Rate - - Oxygen Saturation 98% 01/04/2023 7:59 AM CDT 2L NC Inhaled Oxygen Concentration - - Weight 98 kg (216 lb) 05/18/2023 1:12 PM CDT Height 167.6 cm (5' 6 ) 05/18/2023 1:12 PM CDT Body Mass Index 34.86 05/18/2023 1:12 PM CDT Plan of Treatment Health Maintenance Due Date Last Done Comments Diabetes (HbA1c) Screening/Monitoring 1960 Diabetic Foot Exam (Adult) 1960 HIV Screening 1960 Hyperlipidemia Screening/Monitoring 1960 Obesity Intervention 1979 Hepatitis C Screening 02/11/1980 CT Colonography 2006 Cologuard (FIT-DNA) 2006 Colonoscopy 2006 Colorectal Cancer Screening 2006 Fecal Immunochemical Test (FIT) 2006 Sigmoidoscopy 2006 RSV Vaccines (1 - Risk 50-74 years 1-dose series) 2011 Anemia (CBC) Screening/Monitoring 05/18/2024 05/18/2023 COVID-19 Vaccine (2 - season) 2025 10/17/2020 Influenza Vaccine (#1) 2025 , 05/27/2022, 05/05/2021, Additional history exists DTaP,Tdap,and Td Vaccines (3 - Td or Tdap) 05/27/2032 05/27/2022, 03/24/2017 Zoster Vaccine Completed 07/16/2018, 04/25/2018 Pneumococcal Vaccine: 50+ Years Completed 02/27/2022 HIB Vaccines Aged Out No longer eligi ble based on patient's age to complete this topic Hepatitis B Vaccines Aged Out No long er eligible based on patient's age to complete this topic Meningococcal ACWY Vaccine Aged Out N o longer eligible based on patient's age to complete this topic Meningococcal B Vaccine Aged Out No l onger eligible based on patient's age to complete this topic Procedures Procedure Name Priority Date/Time Associated Diagnosis Comments POC HEMATOCRIT-HANDHELD Routine 05/18/2023 1:34 PM CDT from Last 3 Months or Most Recently Relevant to Health Maintenance Results * POC Hematocrit-Handheld (05/18/2023 1:34 PM CDT) Patient Location POC TVC MRI [facility] Hematocrit Handheld 46 41 - 49 % [facility] Blood 05/18/2023 1:34 PM CDT 05/18/2023 1:40 PM CDT Angely Fernandez APRN LAB POCT ORDERABLES - FARIDEH CE Final Result [facility] [address] [place] [address], from Last 3 Months or Most Recently Relevant to Health Maintenance Insurance [employer] Care Teams Telephone Switchboard Operator Relationship Specialty Start Date End Date Pedro Pablo Limon MD [address] [place] [address] PCP - General Family Medicine 08/31/22
--- OUTSIDE RECORDS SUMMARY | 2025-06-11 09:48 | XMS_ITS | Encounter Summary ---
Author Organization [employer] ([place], [place], [place], [place], [place]) Address [address] [place] [address] Care Team Providers Care Bridge Worker Name Role Phone Unavailable Primary Care Provider Unavailabl e Encounter Details Date Type Department Care Team (Late st Contact Info) Description 08/09/2018 Transcribed Document [facility] [place] Family Medicine [address] [place] [address] ProviderRod MD [facility] [address] Social History Tobacco Use Types [...] Conversion Note - Rod ProviderMD - 08/09/2018 2:30 PM SCHOOL OFFICE MANAGER [facility] PreOp Summary Primary Physician: PRECIOUS GALARZA MD-GAE Finalized Date/Time: 08/09/18 13:30:14 Pt. Name: JULIO QUINN /Sex: 1960 Male Med Rec #: [id number] Physician: PRECIOUS GALARZA MD-GAE Financial #: [id number] Pt. Type: O Room/Bed: [facility] Admit/Disch: 08/09/18 12:20:00 - Institution: [facility] PreOp Case Times Entry 1 In Preop 08/09/18 12:38:00 Ready for Holding 08/09/18 13:20:00 Room Patient Ready for 08/09/18 13:20:00 Surgery Patient Out of Preop 08/09/18 13:21:00 Patient Out of n/a Holding Room [facility] PreOp Case Times Audit 08/09/18 13:28:36 Flask Cleaner: [id number] Modifier: [id number] <+> 1 Patient Out of Preop <+> 1 Patient Ready for Surgery <+> 1 Ready for Holding Room Finalized By: Ijeoma Gonzalez RN Document Signatures Signed By: Ijeoma Gonzalez RN 08/09/18 13:30 documented in this encounter Plan of Treatment Not on file documented as of this encounter Visit Diagnoses Not on filedocumented in this encounter
--- OUTSIDE RECORDS SUMMARY | 2025-06-11 09:48 | XMS_ITS | Clinical Summary ---
Author Organization [facility] Address [address] [place] [address] Care Team Providers Care Classification Control Clerk Name Role Phone Renetta Wade DO Primary Care Provider [phone] Allergies No known active allergies Medications LACTOBACILLUS REUTERI PO Take 200 mg by mouth Daily. 9 Active Cyanocobalamin (B-12) 1000 MCG tablet Take by mouth. Active polyethylene glycol (MIRALAX) 17 GM/SCOOP powder Take by mouth Daily. Active omeprazole (priLOSEC) 40 MG capsuleIndications :Gastroesophageal reflux disease with esophagitis, unspecified whether hemorrhage Take 1 capsule by mouth Daily. 90 capsule 3 1 Active Xifaxan 550 MG tablet Take 550 mg by mouth Every 12 (Twelve) Hours As Needed. 1 Active dicyclomine (BENTYL) 10 MG capsule Take 10 mg by mouth 4 (Four) Times a Day Before Meals & at Bedtime. 1 Active rosuvastatin (CRESTOR) 10 MG tabletIndications: Mixed hyperlipidemia Take 1 tablet by mouth Daily. 90 tablet 3 2 Active fluticasone (FLONASE) 50 MCG/ACT nasal spray 1 spray into the nostril(s) as directed by provider 2 (Two) Times a Day. 2 Active azelastine (ASTEPRO) 0.15 % solution nasal spray 1 spray into the nostril(s) as directed by provider Daily. 2 Active furosemide (LASIX) 40 MG tablet Take 40 mg by mouth 2 (Two) Times a Day. 2 Active famotidine (PEPCID) 20 MG tablet Take 20 mg by mouth. 2 Active potassium chloride 10 MEQ CR tablet Take 10 mEq by mouth 2 (Two) Times a Day. 2 Active O2 (OXYGEN) Inhale 2 L/min Continuous. Active clopidogrel (PLAVIX) 75 MG tabletIndications: History of transient ischemic attack (TIA) Take 1 tablet by mouth Daily. 90 tablet 2 Active zolpidem (AMBIEN) 10 MG tabletIndications: Primary insomnia Take 1 tablet by mouth At Night As Needed for Sleep. 30 tablet 2 2 Active spironolactone (ALDACTONE) 25 MG tablet 2 Active metoprolol succinate XL (TOPROL-XL) 50 MG 24 hr tablet 2 Active lisinopril (PRINIVIL,ZESTRIL) 10 MG tablet 2 Active gabapentin (NEURONTIN) 300 MG capsuleIndications :Chronic RUQ pain,Lumbar radicular pain Take 1 capsule by mouth every night at bedtime. 30 capsule 3 Active albuterol sulfate HFA 108 (90 Base) MCG/ACT inhaler Inhale 2 puffs Every 4 (Four) Hours As Needed for Shortness of Air. 6.7 g 3 Active Fluticasone-Umecli din-Vilant (Trelegy Ellipta) 200-62.5-25 MCG/ACT aerosol powderIndications: MONAHAN (dyspnea on exertion) Inhale 1 puff Daily. 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 Scheduled in about [address] Muñoz. Seems to be unchanged at this point Obesity, Class II, BMI 35-39.9 10/31/2020 H/O pulmonary nodules & Med LN's - prior mediastinoscopy (2005) 10/31/[address] (reticular nodular changes) Assessment & Plan (11/17/2020 6:08 PM EDT): Keep plan to follow-up with Dr. Muñoz in pulmonary. Oxygen at night while sleeping. 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 Chronic RUQ pain 07/19/2016 Assessment & Plan (03/23/2021 5:08 PM EDT): Unfortunately, minimal improvement overall and may have actually had some rebound pain status post his celiac plexus nerve block. I hope they have some insights at the [facility] to his initial response to the block only to have it worsen. Plans to keep follow-up for telemedicine visit with the [facility] next week. Cannot return to work with his chronic right upper quadrant pain that is gradually been worsening over the last several months. Assessment & Plan (11/17/2020 6:07 PM EDT): Yuri is still not anywhere near ready to go back to work. Still in the midst of his work-up with the [facility], as well as our [facility] pulmonary folks-Dr. Muñoz. Continue work-up as planned. We will need to keep him out of work, likely at least another 8 weeks. I will see him back at that time and review how he's doing and make a judgment call when to return to work at that time. MRI of his pancreas function without IV contrast reports was reviewed, along with the MRI of his thoracic spine with and without IV contrast. Both reports are from the [facility]. Unfortunately, still an unclear etiology for Yuri's chronic right upper quadrant pain that is quite debilitating Assessment & Plan (10/02/2020 3:29 PM EST): Keep plan for evaluation with the [facility]. I think this is his best course of action at this time. Hyperglycemia 07/15/2016 Mixed hyperlipidemia 07/15/2016 Assessment & Plan (10/02/2020 3:30 PM EST): Good at last check-continue his rosuvastatin 10 mg a day for now. Recheck the summer early fall. Assessment & Plan (12/07/2018 5:58 PM EDT): Check CMP and lipid panel as noted. Continue diet and off medication for now until labs reviewed. Benign essential HTN 07/15/2016 Assessment & Plan (03/23/2021 5:05 PM EDT): Blood pressure much better today. Continue his current regimen of lisinopril. Assessment & Plan (10/02/2020 3:29 PM EST): Continue stable off of medication. Will remove from his problem list Assessment & Plan (12/07/2018 5:58 PM EDT): Blood pressure is stable off medication. We will continue to monitor. Primary insomnia 07/15/2016 Adenomatous colon polyp 06/10/2016 Overview (06/10/2016): Lucio - 06/16 Resolved Problems Problem Noted Date Diagnosed Date Resolved Date Remote smoker (Stopped 1990) 10/31/2020 01/05/2021 Pneumonia of left lung due t o influenza A virus 09/23/2016 09/23/2016 Parotitis, acute 09/23/2016 04/03/2018 Abnormal liver function tests 07/19/2016 04/20/2020 Skin rash 2016 07/19/2016 Tick bite of abdomen 2016 016 Immunizations Immunization Administration Dates Next Due COVID-19 (MODERNA) 1st,2nd,3 rd Dose Monovalent 11/21/2020,11/07/2020,10/17/2020 Flublock Quad =>18yrs 07/15/2019 Flublok 18+yrs 05/09/2018 Fluzone (or Fluarix & Flulav al for VFC) >6mos 04/13/2020 Fluzone Quad >6mos (Multi-dose) 05/09/2018 Hepatitis A 11/28/2018,05/09/2018 Influenza, Unspecified 05/05/2021,04/13/2020,04/2018 Pneumococcal Conjugate 20-Valent (PCV20) 022 Shingrix 07/16/2018 Tdap 03/24/2017 Zostavax 04/25/2018 Family History Medical History Relation Name Comments Emphysema Brother KYRA OWEN Hypertension Brother KYRA OWEN Cancer Father KYRA OWEN Diabetes Father KYRA OWEN Coronary artery disease Mother TREE OWEN Heart failure Mother TREE OWEN Stroke Mother TREE OWEN Valvular heart disease Mother TREE OWEN Coronary artery disease Other 1 Family hx Diabetes Other 2 Grandmother Hypertension Other 3 Uncle Relation Name Status Comments Brother KYRA OWEN Father KYRA OWEN Mother TREE OWEN Other 1 Family hx Other 2 Grandmother Other 3 Uncle Social History Tobacco Use Types Packs/Day Years Used Date Smoking Tobacco: Former Cigarettes 1 10 0 09/30/1979 - 09/29/1989 Smokeless Tobacco: Never Alcohol Use Standard Drinks/Week Comments No 0 (1 standard drink = 0.6 oz pur e alcohol) PHQ-2 Answer Date Recorded Retired PHQ-9: Brief Depression Severity Measure Score 0 02/18/2022 Abuse Screen Answer Date Recorded Unsafe at Home or Work/School Not on file Feels Threatened by Someone? Not on file 04/2023 Does Anyone Keep You from Co ntacting Others or Doint Things Outside the Home? Not on file 05/09/2023 Physical Sign of Abuse Present Not on file 1 Housing Stability Answer Date Recorded Current Living Arrangements Not on file 04/2023 Potentially Unsafe Housing Conditions Not on wilmer e 05/09/2023 Family and Community Support Answer Alex e Recorded Help with Day-to-Day Activities Not on file 05/09/2023 Lonely or Isolated Not on file 05/09/2023 Employment Answer Date Recorded Do you want help finding or keeping work or a ami b? Not on file 05/09/2023 Disabilities Answer Date Recorded Concentrating, Remembering, or Making Decisions Difficulty Not on file 05/09/2023 Doing Errands Independently Difficulty Not on fi le 05/09/2023 Education Answer Date Recorded Help with school or training? Not on file Preferred Language Not on file 05/09/2023 Sex and Gender Information Value Date Recorded Sex Assigned at Not on file Legal Sex Male 11:40 AM EDT Gender Identity Not on file Sexual Orientation Not on file Last Filed Vital Signs Vital Sign Reading Time Taken Comments Blood Pressure 102/60 08/05/2022 3:03 PM EST Pulse 72 08/05/2022 3:03 PM EST Temperature 36.7 C (98 F) 08/05/2022 3:03 PM EST Respiratory Rate 24 08/05/2022 3:03 PM EST Oxygen Saturation 95% 05/05/2022 2:07 PM EDT Inhaled Oxygen Concentration - - Weight 102 kg (225 lb 3.2 oz) 08/05/2022 3:03 PM EST Height 167.6 cm (5' 5.98 ) 08/05/2022 3:03 PM ES T Body Mass Index 36.37 08/05/2022 3:03 PM EST Plan of Treatment Health Maintenance Due Date Last Done Comments COLOGUARD 2006 COLON CANCER SCREENING 5 YEA R SIGMOIDOSCOPY [address] COLONOGRAPHY 2006 FECAL OCCULT BLOOD TEST 2006 FIT Testing (1 year) 2006 ANNUAL PHYSICAL 04/21/2021 04/21/2020 LIPID PANEL 05/05/2023 05/05/2022, 09/02, 05/04/2021, Additional history exists INFLUENZA VACCINE 03/01/2025 05/27/2022, , 04/16/2021, Additional history exists COLONOSCOPY 06/01/2026 06/01/2021, 09/2015, 06/03/2016 COLORECTAL CANCER SCREENING 06/01/2026 TDAP/TD VACCINES (3 - Td or Tdap) 05/27/2032 05/27/2022, 03/24/2017, 03/24/2017 HEPATITIS C SCREENING Completed 03/24/2017, 017 ZOSTER VACCINE Discontinued 07/16/2018, 04/25/2018 Pneumococcal Vaccine 50+ Completed 02/27/2022 Procedures Procedure Name Priority Date/Time Associated Diagnosis Comments LIPID PANEL W/ CHOL/HDL RATIO Routine 05/05/2022 3:09 PM EDT Elevated hemoglobin A1c Mixed hyperlipidemia Benign essential HTN HEPATITIS C ANTIBODY Routine 03/24/2017 12:00 AM EDT Need for hepatitis C screening test SCANNED - COLONOSCOPY 06/03/2016 from Last 3 Months or Most Recently Relevant to Health Maintenance Results * (ABNORMAL) Lipid Panel With / Chol / HDL Ratio (05/05/2022 3:09 PM EDT) Total Cholesterol 138 100 - 199 mg/dL [facility] Triglycerides 131 0 - 149 mg/dL [facility] HDL Cholesterol 34(L) >39 mg/dL [facility] VLDL Cholesterol [place] 23 5 - 40 mg/dL [facility] LDL Chol Calc (NIH) 81 0 - 99 mg/dL [facility] Chol/HDL Ratio 4.1 0.0 - 5.0 ratio [facility] Comment: T. Chol/HDL Ratio Men Women 1/2 Avg.Risk 3.4 3.3 Avg.Risk 5.0 4.4 2X Avg.Risk 9.6 7.1 3X Avg.Risk 23.4 11.0 Blood 05/05/2022 3:09 PM EDT 05/05/2022 Narrative [facility] ([facility]) - 05/06/2022 8:12 AM EDT Performed at: 01 - [facility] [address] [place] [address], [place], [place] [id number] Cab Worker: Carmelo Sherman PhD, Phone: [phone] us Renetta Wade DO LAB BLOOD ORDERABLES Final Result [facility] ([facility]) [address] [place] [address], [place] [phone] [facility] [address] [id number], * Hepatitis C Antibody (03/24/2017 12:00 AM EDT) Hep C Virus Ab <0.1 0.0 - 0.9 s/co ratio [facility] Comment: Negative: < 0.8 Indeterminate: 0.8 - 0.9 Positive: > 0.9 The CDC recommends that a positive HCV antibody result be followed up with a HCV Nucleic Acid Amplification test ([id number]). Blood 03/24/2017 03/24/2017 Narrative [facility] ([facility]UL[facility]) - 03/25/2017 6:12 AM EDT Performed at: 02 - [facility] [address] [place], [place] [id number] Cab Worker: Carmelo Sherman PhD, Phone: [phone] Tyron Downs MD LAB BLOOD ORDERABLES Final Res ult [facility] (AMBULATORY) [address] [place] [address], [facility] [address] [place] [address], * SCANNED - COLONOSCOPY (06/03/2016) Tyron Downs MD CHART REVIEW TABS Final Res ult from Last 3 Months or Most Recently Relevant to Health Maintenance Insurance [facility] PPO Member Subscriber Plan / Payer (Ef fective 2016-Present) Name:Julio Owen Relation to Subscriber:Self Name:Julio Owen Payer ID:[id number] (NAIC) Type:Not on file Address: [facility] [id number] Care Teams Classification Control Clerk Relationship Specialty Start Date End Date Renetta Wade DO [address] [place] [address] PCP - General Family Medicine 05/04/21
--- OUTSIDE RECORDS SUMMARY | 2025-06-11 09:48 | XMS_ITS | Encounter Summary ---
Author Organization [employer] ([place], [place], [place], [place], [place]) Address [address] [place] [address] Care Team Providers Care Liquor Bridge Operator Helper Name Role Phone Unavailable Primary Care Provider Unavailabl e Encounter Details Date Type Department Care Team (Late st Contact Info) Description 01/24/2019 Transcribed Document [facility] [place] Family Medicine [facility] [place] [address] ProviderRod MD [address] [place] [id number] Social History Tobacco Use Types Packs/Day [...] Note - Rod Hills MD - 01/24/2019 2:36 PM CDT [address] [address] JULIO OWEN :1960 Visit Time:01/24/2019 What to do next Your Diagnosis Right upper quadrant pain, Right upper quadrant pain Instructions From Your Care Team Diet after Discharge: Resume usual diet as tolerated, _, _ Fluid Restriction after Discharge: _ Activity after Discharge: As tolerated, Rest and relax today, No strenuous activity Lifting Restrictions: _ Weight Bearing: _ Bedrest: _ Driving after Discharge: Do not drive May Return to Work/School: Showering/Bathing: May shower, _ Notify Provider of: call for any problems Wound/Incision Care after Discharge: _, _ Medical Equipment for Home Use: Home Health Services: Community Services: Follow-Up Appointments Follow Up with PRECIOUS GALARZA MD-GAE When Within 2 to 3 days Where: [address] [place] [phone]- Medications What How Much When Instructions Next Dose bifidobacterium-lactobacillus (Probiotic Formula oral capsule) Oral Every Day clopidogrel (clopidogrel 75 mg oral tablet) 1 Tablet(s) Oral Every Day esomeprazole (NexIUM) otc Oral Every Day multivitamin (Multi Vitamin+) omega-3 polyunsaturated fatty acids (Fish Oil) Oral zolpidem At Bedtime Take your medications faithfully. Do NOT skip [...] cramping, rapid heartbeat, difficulty sleeping, and nervousness. Please dispose of unused and medications per pharmacy guidance. Education Materials Endoscopic Retrograde Cholangiopancreatography (ERCP), Care After Refer [...] to feel: ??? Soreness in your throat. ??? Sick to your stomach (nauseous). ??? Bloated. ??? Dizzy. ??? Fatigued. HOME CARE INSTRUCTIONS ??? Have a friend or family member stay with you for the first 24 hours after your procedure. ??? Start taking your usual medicines and eating normally as soon as you feel well enough to do so or as directed by your health care provider. SEEK MEDICAL CARE IF: ??? You have abdominal pain. ??? You develop signs of infection, such as: ? Chills. ? Feeling unwell. SEEK IMMEDIATE MEDICAL CARE IF: ??? You [...] provider. Document Released: 05/08/2014 Document Reviewed: 05/08/2014 [employer] Patient Education ?? 2017 [employer]. Emergency Awareness and Preventative Care STROKE is an EMERGENCY Every Minute Counts Act FAST and Check for these signs: FACE Does the face look uneven? ARM Does one arm drift down? SPEECH Does their speech sound strange? TIME Call at any sign of stroke Stroke Risk Factors Atrial Fibrillation (irregular heartbeat) Diabetes Family history of stroke Heart Disease Heavy alcohol use High Blood Pressure High Cholesterol Physical inactivity and obesity Smoking Cigarette Smoking The facts are clear, cigarette smoking will shorten your life. Smoking can cause many illnesses along the way. As a healthcare provider, we recommend that you stop smoking. Assistance with quitting is available by contacting 5-115-IDAINOW. This is a free resource providing counseling, support, and referral. Or you may contact your personal physician. National Suicide Prevention Lifeline: The National Suicide Prevention Lifeline is a national network of local crisis centers that provides free and confidential emotional support to people in suicidal crisis or emotional distress 24 hours a day, 7 days a week. Don't Wait! Stop a Heart Attack Before it Starts What is a heart attack? A heart attack is damage or to a part of the heart from severely decreased or lack of blood flow to the heart. Over time, arteries can become narrow from the buildup of fat and cholesterol, which is called plaque. The plaque can rupture causing a blood clot to form. When the blood clot forms, the artery can become severely narrowed or completely blocked, causing a heart attack. Heart attack is the leading cause of in the [place]. 85% of muscle damage occurs within the first 2 hours. Delay in the recognition of heart attack symptoms increases the chances of . Know the early symptoms of a heart attack: Nausea Feeling of fullness in chest Jaw Pain Pain that travels down one or both arms Fatigue/being tired Anxiety Back Pain Chest pressure, squeezing, or discomfort Shortness of breath Sweating, or a cold sweat Feeling of impending doom There are unusual signs of a heart attack, too! Women, the elderly, and diabetics may present with atypical symptoms: Fainting/dizziness Weakness Confusion Risk Factors for a Heart Attack Some heart disease risk factors, such as age and family history, cannot be changed. Others, like smoking and lack of exercise, can be changed. Smoking High Cholesterol High Blood Pressure Family History Obesity Age Gender (Males are at higher risk) Lack of Exercise Diabetes Diet Stress Excessive Alcohol Intake If you or someone you know is experiencing the signs and symptoms of a heart attack, DON???T DELAY. Call immediately and seek help. If someone collapses, perform CPR! Do not attempt to drive if you are having symptoms of heart attack. Hands-Only CPR Why Hands-Only CPR? Hands-Only CPR has been shown to be as effective as conventional CPR for cardiac arrests that occur outside of a hospital. Survival depends on immediately receiving CPR from someone nearby. How do you perform Hands-Only CPR? There are two easy steps: Call if you see a teen or adult collapse Push hard and fast in the center of the chest at a beat of 100 beats per minute. Save a life! 4 WAYS TO GET AHEAD OF SEPSIS SEPSIS is a MEDICAL EMERGENCY. Time matters! Infections put you and your family at risk for a life-threatening condition called sepsis. Sepsis is the body's extreme response to an infection. It is life-threatening, and without timely treatment, sepsis can rapidly lead to tissue damage, organ failure, and . Sepsis happens when an infection you already have-in your skin, lungs, urinary tract or somewhere else-triggers a chain reaction throughout your body. 1 PREVENT INFECTIONS Take good care of chronic conditions. Talk to your doctor about getting the recommended vaccines. 2 PRACTICE GOOD HYGIENE Wash your hands frequently. Keep cuts or open sores clean and covered until they are healed. 3 KNOW THE SYMPTOMS Confusion or disorientation Shortness of breath High heart rate Fever, shivering, or feeling very cold Extreme pain or discomfort Clammy or sweaty skin 4 ACT FAST Get medical care IMMEDIATELY if you suspect sepsis or if you have an infection that is not getting better or is getting worse. To learn more about sepsis and how to prevent infections, visit www.cdc.gov/sepsis. Test Results Laboratory or Other Results This Visit (last charted value for your 01/24/2019 visit) No Laboratory or Other Results This Visit Patient Name:JULIO OWEN JARRETT I have received this information and was given the opportunity to ask questions. Patient/Utilities And Maintenance Supervisor Name: Patient/Utilities And Maintenance Supervisor Signature: Relationship to Patient: Clinician/Hospital Utilities And Maintenance Supervisor Signature: Date: documented in this encounter Plan of Treatment Not on file documented as of this encounter Visit Diagnoses Not on filedocumented in this encounter
--- OUTSIDE RECORDS SUMMARY | 2025-06-11 09:48 | XMS_ITS | Encounter Summary ---
Author Organization [employer] ([place], [place], [place], [place], [place]) Address [address] [place] [address] Care Team Providers Care Pastry Chef Name Role Phone Unavailable Primary Care Provider Unavailabl e Encounter Details Date Type Department Care Team (Late st Contact Info) Description 08/09/2018 Transcribed Document [facility] [place] Medicine [facility] [place] [address] ProviderRod MD [facility] [place] [address] Social History Tobacco Use Types [...] Note - Rod Hills MD - 08/09/2018 1:53 PM RN CARDIOVASCULAR ICU [facility] PACU Summary Primary Physician: PRECIOUS GALARZA MD-GAE Finalized Date/Time: 08/09/18 15:54:42 Pt. Name: JULIO QUINN /Sex: 1960 Male Med Rec #: [id number] Physician: PRECIOUS GALARZA MD-GAE Financial #: [id number] Pt. Type: O Room/Bed: [facility] [place] Admit/Disch: 08/09/18 12:20:00 - Institution: [facility] PACU Case Times Entry 1 In PACU I 08/09/18 14:25:00 Ready for PACU 08/09/18 15:54:00 Discharge Discharge from PACU 08/09/18 15:54:00 I [facility] PACU Case Times Audit 08/09/18 15:54:41 Editor & Co Founder: YOMAIRA Modifier: [email or web address] <+> 1 Ready for PACU Discharge <+> 1 Discharge from PACU I Finalized By: GHADA NICHOLAS, RN Document Signatures Signed By: GHADA NICHOLAS RN 08/09/18 15:54 Electronically signed by Ban [employer] Conversion [employer] Sales And Service Supervisor Cerner at 11/18/2022 8:09 AM CDT documented in this encounter Plan of Treatment Not on file documented as of this encounter Visit Diagnoses Not on filedocumented in this encounter
--- OUTSIDE RECORDS SUMMARY | 2025-06-11 09:48 | XMS_ITS | Encounter Summary ---
Author Organization [employer] ([place], [place], [place], [place], [place]) Address [address] [place] [address] Care Team Providers Care Shirt Creaser Name Role Phone Unavailable Primary Care Provider Unavailabl e Encounter Details Date Type Department Care Team (Late st Contact Info) Description 08/09/2018 Transcribed Document [facility] [place] [address] [place] [address] ProviderRod MD [address] [place], [place] [id number] Social History Tobacco Use Types Packs/Day Years Used Date Smoking Tobacco: Never Assessed Sex and Gender Information Value Date Recorded Sex Assigned at Male 01/26/2022 5:05 PM CDT Legal Sex Male 5:05 PM CDT Gender Identity Male 01/26/2022 5:05 PM CDT Sexual Orientation Not on file documented as of this encounter Miscellaneous Notes * Cerner Conversion Note - Rod ProviderMD - 08/09/2018 3:52 PM GLOVE PARTS CUTTER Discharge Instructions Entered On: 08/09/2018 15:52 EST Performed On: 08/09/2018 15:52 EST by GHADA NICHOLAS RN DC Instructions HWD Stroke/TIA Discharge Ins : N/A Heart Failure Discharge Ins : N/A Warfarin Discharge Ins : N/A Diet After Discharge : Other: clear liquids today Activity After Discharge : Rest and relax today, No strenuous activities Driving After Discharge : Do not drive Showering/Bathing : Macy shower GHADA NICHOLAS RN - 08/09/2018 15:52 EST Electronically signed by [employer] [facility] Conversion Costume Specialist Cerner at 11/18/2022 8:01 AM CDT documented in this encounter Plan of Treatment Not on file documented as of this encounter Visit Diagnoses Not on filedocumented in this encounter
--- OUTSIDE RECORDS SUMMARY | 2025-06-11 09:48 | XMS_ITS | Encounter Summary ---
Author Organization [employer] ([place], [place], [place], [place], [place]) Address [address] [place] [address] Care Team Providers Care Painter Barrel Name Role Phone Unavailable Primary Care Provider Unavailabl e Encounter Details Date Type Department Care Team (Late st Contact Info) Description 06/13/2019 Transcribed Document [facility] [place] Family Medicine [facility] [address] ProviderRod MD [facility] [place] [address] Social History Tobacco Use Types [...] Note - Rod Hills MD - 06/13/2019 2:05 PM SKIN CARE SPECIALIST [facility] PACU Summary Primary Physician: PRECIOUS GALARZA MD-GAE Finalized Date/Time: 06/13/19 15:04:51 Pt. Name: JULIO QUINN /Sex: 1960 Male Med Rec #: [id number] Physician: PRECIOUS GALARZA MD-GAE Financial #: [id number] Pt. Type: O [place] [facility] [place] Admit/Disch: 06/13/19 11:46:00 - Institution: [facility] PACU Case Times Entry 1 In PACU I 06/13/19 14:32:00 Ready for PACU 06/13/19 14:55:00 Discharge Discharge from PACU 06/13/19 15:04:00 I [facility] PACU Case Times Audit 06/13/19 15:04:39 Pie Icer Machine: [id number] Modifier: [id number] <+> 1 Discharge from PACU I Finalized By: Ijeoma Gonzalez RN Document Signatures Signed By: Ijeoma Gonzalez RN 06/13/19 15:04 documented in this encounter Plan of Treatment Not on file documented as of this encounter Visit Diagnoses Not on filedocumented in this encounter
--- OUTSIDE RECORDS SUMMARY | 2025-06-11 09:48 | XMS_ITS | Encounter Summary ---
Author Organization [employer] ([place], [place], [place], [place], [place]) Address [address] [place] [address] Care Team Providers Care Emergency Generator Mechanic Name Role Phone Unavailable Primary Care Provider Unavailabl e Encounter Details Date Type Department Care Team (Late st Contact Info) Description 01/24/2019 Transcribed Document [facility] [place] Family Medicine [address] [place] [address] ProviderRod [place] [address] Social History Tobacco Use Types [...] - 01/24/2019 1:39 PM CDT [facility] IntraOp Summary Primary Physician: PRECIOUS GALARZA MD-GAE Finalized Date/Time: 01/24/19 13:59:59 Pt. Name: JULIO OWEN /Sex: 1960 Male Med Rec #: [id number] Physician: PRECIOUS GALARZA MD-GAE Financial #: [id number] Pt. Type: O Room/Bed: Admit/Disch: 01/24/19 11:13:00 - Institution: [facility] - Case Attendance Entry 1 Entry 2 Entry 3 Case Attendee PRECIOUS GALARZA STULL, KELSI A, NA BRISCOE, ANTHONY W. MD-GAE Role Performed Surgeon/Proceduralist, [employer] TRIMMER/Nurse Metallurgical Engineer Scrub, First First Time In 01/24/19 13:29:00 01/24/19 13:29:00 01/24/19 13:29:00 Time Out 01/24/19 13:59:00 01/24/19 13:59:00 01/24/19 13:59:00 Procedure Endoretrogradecholangiop Endoretrogradecholangiop Endoretrogradecholangiop ancreatography, ancreatography, ancreatography, Sphincterotomy, Biliary Sphincterotomy, Biliary Sphincterotomy, Biliary Duct Balloon Sweep Duct Balloon Sweep Duct Balloon Sweep Other Attendee Superficial Wound Closed By: Last Modified By: Kelsea Vieyra RN Hamlin, Sherri, RN Hamlin, Sherri, RN 01/24/19 13:59:53 01/24/19 13:59:53 01/24/19 13:59:53 Entry 4 Entry 5 Case Attendee VIET LANDEROS Sherri, RN Role Performed Business Management Manager Robotics Technician, First Time In 01/24/19 13:29:00 01/24/19 13:29:00 Time Out 01/24/19 13:59:00 01/24/19 13:59:00 Procedure Endoretrogradecholangiop Endoretrogradecholangiop ancreatography, ancreatography, Sphincterotomy, Biliary Sphincterotomy, Biliary Duct Balloon Sweep Duct Balloon Sweep Other Attendee Superficial Wound Closed By: Last Modified By: Kelsea Vieyra RN Hamlin, Sherri, RN 01/24/19 13:59:53 01/24/19 13:59:53 [facility] - Case Attendance Audit 01/24/19 13:59:53 Drafter Structural: [email or web address] Modifier: [email or web address] 1 <+> Time Out 1 <*> Procedure Endoretrogradecholangiopancreatography, Sphincterotomy, Biliary Duct Balloon Sweep 2 <+> Time Out 2 <*> Procedure Endoretrogradecholangiopancreatography, Sphincterotomy, Biliary Duct Balloon Sweep 3 <+> Time Out 3 <*> Procedure Endoretrogradecholangiopancreatography, Sphincterotomy, Biliary Duct Balloon Sweep 4 <+> Time Out 4 <*> Procedure Endoretrogradecholangiopancreatography, Sphincterotomy, Biliary Duct Balloon Sweep 5 <+> Time Out 5 <*> Procedure Endoretrogradecholangiopancreatography, Sphincterotomy, Biliary Duct Balloon Sweep 01/24/19 13:51:16 Drafter Structural: [email or web address] Modifier: [email or web address] 1 <*> Procedure Endoretrogradecholangiopancreatography 2 <*> Procedure Endoretrogradecholangiopancreatography 3 <*> Procedure Endoretrogradecholangiopancreatography 4 <*> Procedure Endoretrogradecholangiopancreatography 5 <*> Procedure Endoretrogradecholangiopancreatography 01/24/19 13:49:34 Drafter Structural: [email or web address] Modifier: [email or web address] <+> 1 Procedure 2 <*> Procedure Endoretrogradecholangiopancreatography 3 <*> Procedure Endoretrogradecholangiopancreatography 4 <*> Procedure Endoretrogradecholangiopancreatography 5 <*> Procedure Endoretrogradecholangiopancreatography 01/24/19 13:45:44 Drafter Structural: JOSE [email or web address] Modifier: [email or web address] <+> 1 Time In 2 <+> Time In 2 <*> Procedure Endoretrogradecholangiopancreatography 3 <+> Time In 3 <*> Procedure Endoretrogradecholangiopancreatography 4 <+> Time In 4 <*> Procedure Endoretrogradecholangiopancreatography 5 <+> Time In 5 <*> Procedure Endoretrogradecholangiopancreatography [facility] End[facility] - Case Times Entry 1 Patient In Room Time 01/24/19 13:29:00 Out Room Time 01/24/19 13:59:00 Anesthesia Start Time 01/24/19 13:29:00 Stop Time 01/24/19 13:59:00 Anesthesia Ready 01/24/19 13:29:00 Surgery / Procedure Times Start Time 01/24/19 13:39:00 Stop Time 01/24/19 13:54:00 Last Modified By: Kelsea Vieyra RN 01/24/19 13:59:12 [facility] - Case Times Audit 01/24/19 13:59:12 Drafter Structural: JOSE [email or web address] Modifier: [email or web address] <+> 1 Out Room Time <+> 1 Stop Time 01/24/19 13:54:57 Drafter Structural: [email or web address] Modifier: [email or web address] <+> 1 Stop Time 01/24/19 13:50:14 Drafter Structural: [email or web address] Modifier: [email or web address] 1 <*> Start Time 01/24/19 13:39:00 1 <+> Start Time 1 <+> Anesthesia Ready 01/24/19 13:42:36 Drafter Structural: [email or web address] Modifier: [email or web address] <+> 1 Start Time [facility] - Cautery Entry 1 ESU Identification Cautery Type Monopolar ESU Cautery Type ENDO CUT Comments ID Number ERBE ID Type Hospital Number Cautery Settings ESU Grounding Pad Ground Pad Type Argon Grounding Pad Site Left Flank Grounding Pad Site Dry, Intact Skin Condition Before Cautery Grounding Pad Site Unchanged Skin Condition After Cautery Last Modified By: Kelsea Vieyra RN 01/24/19 13:53:20 [facility] - Delays Entry 1 Delay Reason Other Duration 0 Minute(s) Comment NO DELAY Last Modified By: Kelsea Vieyra RN 01/24/19 13:38:58 [facility] - Departure from OR Entry 1 Integumentary Assessment Integumentary WDL Assessment WDL Transfer/Handoff Transfer to PACU Phase I Handoff Reported to GHADA NICHOLAS RN Post-op Transport Stretcher/Gurney Via Patient Transport Kelsea Vieyra RN, Accompanied by LIS CARRANZA NA Last Modified By: Kelsea Vieyra RN 01/24/19 13:39:49 [facility] - Endoscopy Details Entry 1 Abdomen Procedure Soft, Non-Tender, Assessment Non-distended Procedure Abdomen 01/24/19 13:39:00 Assessment D/T Radio Frequency Ablation Last Modified By: Kelsea Vieyra RN 01/24/19 13:39:54 [facility] - Fire Risk Assessment Entry 1 Fire Info Surgical Site or 1- Yes Incision Above the Xyphoid Open O2 Source 1- Yes (Mask or Cannula) Available Ignition 1- Yes (ESU, Laser, Light Source) Fire Risk 3 Assessment Score Fire Score Fire Risk Yes Assessment Complete Fire Risk Kelsea Vieyra RN Assessment Verified By Fire Risk 01/24/19 13:40:00 Assessment Verified Date/Time Fire Risk High Risk Protocol Yes Implemented Standard Fire Yes Safety Precautions Followed Last Modified By: Kelsea Vieyra RN 01/24/19 13:40:01 [facility] - General Case Tool Analyst 1 Case Information OR Endo 03 [facility] Case Level 1 Room Verified Yes Wound Class II - Clean-Contaminated Specialty SN Gastroenterology Anesthesia Type MAC ASA Class 2 Diagnosis Preop Diagnosis RIGHT UPPER QUADRANT PAIN Postop Same As Preop No Postop Diagnosis BILIARY SLUDGE, SPHINCTOR OF ARNULFO Last Modified By: Kelsea Vieyra RN 01/24/19 13:55:17 [facility] - General Case Data Audit 01/24/19 13:55:17 Drafter Structural: JOSE [email or web address] Modifier: [email or web address] <+> 1 Postop Diagnosis 01/24/19 13:47:31 Drafter Structural: [email or web address] Modifier: [email or web address] 1 <+> Postop Same As Preop 1 <*> Preop Diagnosis R10.11 [facility] - Intraoperative Assessment Entry 1 Valid History / Yes Physical in Chart Preoperative Yes Checklist Reviewed/Evaluated Allergies Reviewed Yes Patient is Latex No Sensitive Level of WDL Consciousness (WDL = Alert, Oriented to Person, Place, and Time) Present Upon ECG monitored Arrival to OR Last Modified By: Kelsea Vieyra RN 01/24/19 13:41:55 [facility] - Intraoperative Equipment Entry 1 Equipment Intraop Monitoring Electrocardiogram Three lead placement (ECG) Electrode Placement Blood Pressure Arm, left upper Location Pulse Oximeter Hand, right Probe Site Antiembolic Devices Scopes Flexible Endoscopes ERCP Scope Used Scope Serial [id number] Number/Identificatio n Number Photo/Video Documentation Photo Yes Video No Last Modified By: Kelsea Vieyra RN 01/24/19 13:42:13 [facility] - Medication Admin Entry 1 Medication/Irrigant Isovue 300 50 ml bottle Route of [id number] Administration Dose Unit of Measure ml Administered By PRECIOUS GALARZA MD-GAAnthony Procedure Irrigation Last Modified By: Kelsea Vieyra RN 01/24/19 13:45:12 [facility] - Patient Positioning Entry 1 Procedure Endoretrogradecholangiop ancreatography, Sphincterotomy, Biliary Duct Balloon Sweep Body Position Prone Left Arm Position Tucked and padded at side Right Arm Position Tucked and padded at side Left Leg Position Uncrossed, parallel Right Leg Position Uncrossed, parallel Feet Uncrossed Yes Pressure Points Yes Checked Positioning Devices Roll (Other) Positioned By Kelsea Vieyra RN Position Verified Positioning Yes Verified by Surgeon Last Modified By: Kelsea Vieyra RN 01/24/19 13:51:19 [facility] End[facility] - Patient Positioning Audit 01/24/19 13:51:19 Drafter Structural: JOSE ANTONIOMARVINRamesh Modifier: [email or web address] 1 <*> Procedure Endoretrogradecholangiopancreatography [facility] - Sign In Entry 1 Patient, Site, Yes Procedure Identified Surgical Consent Yes Confirmed Relevant Surgical Yes Documents Available Surgical Site N/A Marked by person performing procedure Allergies No Airway Hypothermia Risk No Warming Measures No Taken Last Modified By: Kelsea Vieyra RN 01/24/19 13:45:41 [facility] - Sign Out Entry 1 RN Confirmation Surgical Yes Procedure(s) Identified Instrument, Sponge N/A and Sharps Counts Correct/Documented Equipment Problems N/A Documented Specimen Labeled N/A Correctly Urinary Catheter N/A Documented in IView Safety Checklist Yes Elements Complete? RN Sign Out Kelsea Vieyra RN Signature RN Sign Out 01/24/19 13:55:00 Signature Date/Time Plan of Care Outcome - [...] related to extraneous objects Last Modified By: Kelsea Vieyra RN 01/24/19 13:55:33 [facility] - Sign Out Audit 01/24/19 13:55:33 Drafter Structural: JOSE ANTONIOMARVINRamesh Modifier: [email or web address] <+> 1 RN Sign Out Signature Date/Time <+> 1 Urinary Catheter Documented in IView [facility] - Surgical Procedures Entry 1 Entry 2 Entry 3 Procedure Endoretrogradecholangiop Sphincterotomy Biliary Duct Balloon ancreatography Sweep Modifiers Additional Procedure Description Primary Procedure Yes No No Primary Surgeon PRECIOUS GALARZA, PRECIOUS GALARZA ROBBINS, EARL GLEN, MD-GAE MD-GAE MD-GAE Start 01/24/19 13:39:00 01/24/19 13:39:00 01/24/19 13:39:00 Stop 01/24/19 13:54:00 01/24/19 13:54:00 01/24/19 13:54:00 Physician States Cecum Reached Anesthesia Type MAC MAC MAC Specialty SN Gastroenterology SN Gastroenterology SN Gastroenterology Wound Class II - Clean-Contaminated II - Clean-Contaminated II - Clean-Contaminated Last Modified By: Kelsea Vieyra RN Hamlin, Sherri, RN Hamlin, Sherri, RN 01/24/19 13:56:13 01/24/19 13:56:13 01/24/19 13:56:13 E Endo - Surgical Procedures Audit 01/24/19 13:56:13 Drafter Structural: BHUMI Modifier: [email or web address] 1 <*> Procedure Endoretrogradecholangiopancreatography 1 <+> Specialty 1 <+> Stop 2 <*> Procedure Sphincterotomy 2 <+> Specialty 2 <+> Stop 3 <*> Procedure Biliary Duct Balloon Sweep 3 <+> Specialty 3 <+> Stop 01/24/19 13:51:12 Drafter Structural: BHUMI Modifier: JOSE [email or web address] <+> 1 Start <+> 2 Procedure <+> 2 Primary Procedure <+> 2 Primary Surgeon <+> 2 Start <+> 2 Wound Class <+> 2 Anesthesia Type <+> 3 Procedure <+> 3 Primary Procedure <+> 3 Primary Surgeon <+> 3 Start <+> 3 Wound Class <+> 3 Anesthesia Type [facility] - Time Out Entry 1 Procedure to be Endoretrogradecholangiop Performed ancreatography, Sphincterotomy, Biliary Duct Balloon Sweep Time Out Time Out Pause Time 01/24/19 13:38:00 All activity Yes suspended (unless life threatening emergency) Team Verbally Correct patient Confirms Information identity, Correct side and site are marked, Consent form is present and accurate, Agreement on the procedure to be done, Correct patient position Antibiotic N/A Prophylaxis Administered Or In Progress Within the Last 60 Minutes Beta Gilmar N/A Administered Venous N/A Thromboembolism Prophylaxis Required Anticipated Critical Events Surgeon None expected Last Modified By: Kelsea Vieyra RN 01/24/19 13:51:19 [facility] - Time Out Audit 01/24/19 13:51:19 Drafter Structural: BHUMI Modifier: [email or web address] 1 <*> Procedure to be Performed Endoretrogradecholangiopancreatography [facility] - X-Ray and Images Entry 1 X-Ray/Imaging Type Fluoroscopy Fluoroscopy Type C-Arm Protective Devices Yes Used Exposure Time .7 Last Modified By: Kelsea Vieyra RN 01/24/19 13:59:03 Case Comments <None> Finalized By: Kelsea Vieyra RN Document Signatures Signed By: Kelsea Vieyra RN 01/24/19 13:59 Electronically signed by [facility] [employer] Day Worker Cerner at 11/18/2022 8:17 AM CDT documented in this encounter Plan of Treatment Not on file documented as of this encounter Visit Diagnoses Not on filedocumented in this encounter
--- OUTSIDE RECORDS SUMMARY | 2025-06-11 09:48 | XMS_ITS | Encounter Summary ---
Author Organization [employer] ([place], [place], [place], [place], [place]) Address [address] [place] [address] Care Team Providers Care Pharmacy Aide Name Role Phone Unavailable Primary Care Provider Unavailabl e Encounter Details Date Type Department Care Team (Late st Contact Info) Description 06/13/2019 Transcribed Document [facility] [place] Family Medicine [facility] [place] [address] ProviderRod MD [address] [place] [id number] Social History Tobacco Use Types Packs/Day [...] Rod Hills MD - 06/13/2019 2:05 PM [employer] FIELD SUPERVISOR GLENN Sawant IntraOp Summary Primary Physician: PRECIOUS GALARZA MD-GAE Finalized Date/Time: 06/13/19 14:21:02 Pt. Name: JULIO OWEN /Sex: 1960 Male Med Rec #: [id number] Physician: PRECIOUS GALARZA MD-GAE Financial #: [id number] Pt. Type: O Room/Bed: [facility] Admit/Disch: 06/13/19 11:46:00 - Institution: [facility] [place] - Case Attendance Entry 1 Entry 2 Entry 3 Case Attendee PRECIOUS GALARZA WALLACE, HEATHER, RN PRESCOTT, JACHELE MD-GAE Role Performed Surgeon/Proceduralist, Roll Forger, First Scrub, First First Time In 06/13/19 13:50:00 06/13/19 13:50:00 06/13/19 13:50:00 Time Out 06/13/19 14:20:00 06/13/19 14:20:00 06/13/19 14:20:00 Procedure Endoretrogradecholangiop Endoretrogradecholangiop Endoretrogradecholangiop ancreatography, ancreatography, ancreatography, Sphincterotomy, Biliary Sphincterotomy, Biliary Sphincterotomy, Biliary Duct Dilation Duct Dilation Duct Dilation Other Attendee Superficial Wound Closed By: Last Modified By: MOISÉS ARRIAGA RN WALLACE, HEATHER, RN WALLACE, HEATHER, RN 06/13/19 14:20:24 06/13/19 14:20:24 06/13/19 14:20:24 Entry 4 Entry 5 Case Attendee CHERYL ROSSI Fox, Kevin, RADIOLOGIC COMMUNITY ORGANIZATION DIRECTOR-ANS TECHNOLOGIST Role Performed CROSSING GATEMAN/Nurse Environment Friendly Landscape Designer Developer Advisor Time In 06/13/19 13:50:00 06/13/19 13:58:00 Time Out 06/13/19 14:20:00 06/13/19 14:20:00 Procedure Endoretrogradecholangiop Endoretrogradecholangiop ancreatography, ancreatography, Sphincterotomy, Biliary Sphincterotomy, Biliary Duct Dilation Duct Dilation Other Attendee Superficial Wound Closed By: Last Modified By: MOISÉS ARRIAGA RN WALLACE, HEATHER, RN 06/13/19 14:20:24 06/13/19 14:20:24 [facility] - Case Attendance Audit 06/13/19 14:20:24 Slp Teacher: KAY Modifier: KAY 1 <+> Time Out 1 <*> Procedure Endoretrogradecholangiopancreatography, Sphincterotomy, Biliary Duct Dilation 2 <+> Time Out 2 <*> Procedure Endoretrogradecholangiopancreatography, Sphincterotomy, Biliary Duct Dilation 3 <+> Time Out 3 <*> Procedure Endoretrogradecholangiopancreatography, Sphincterotomy, Biliary Duct Dilation 4 <+> Time Out 4 <*> Procedure Endoretrogradecholangiopancreatography, Sphincterotomy, Biliary Duct Dilation 5 <+> Time Out 5 <*> Procedure Endoretrogradecholangiopancreatography, Sphincterotomy, Biliary Duct Dilation 06/13/19 14:12:52 Slp Teacher: KAY Modifier: BRYANTHE 1 <*> Procedure Endoretrogradecholangiopancreatography, Sphincterotomy 2 <*> Procedure Endoretrogradecholangiopancreatography, Sphincterotomy 3 <*> Procedure Endoretrogradecholangiopancreatography, Sphincterotomy 4 <*> Procedure Endoretrogradecholangiopancreatography, Sphincterotomy 5 <*> Procedure Endoretrogradecholangiopancreatography, Sphincterotomy 06/13/19 14:12:37 Slp Teacher: KAY Modifier: BRYANTHE 1 <*> Procedure Endoretrogradecholangiopancreatography, Sphincterotomy, Biliary Duct Balloon Sweep 2 <*> Procedure Endoretrogradecholangiopancreatography, Sphincterotomy, Biliary Duct Balloon Sweep 3 <*> Procedure Endoretrogradecholangiopancreatography, Sphincterotomy, Biliary Duct Balloon Sweep 4 <*> Procedure Endoretrogradecholangiopancreatography, Sphincterotomy, Biliary Duct Balloon Sweep 5 <*> Procedure Endoretrogradecholangiopancreatography, Sphincterotomy, Biliary Duct Balloon Sweep 06/13/19 14:10:40 Slp Teacher: KAY Modifier: BRYANTHE 1 <*> Procedure Endoretrogradecholangiopancreatography, Sphincterotomy 2 <*> Procedure Endoretrogradecholangiopancreatography, Sphincterotomy 3 <*> Procedure Endoretrogradecholangiopancreatography, Sphincterotomy 4 <*> Procedure Endoretrogradecholangiopancreatography, Sphincterotomy 5 <*> Procedure Endoretrogradecholangiopancreatography, Sphincterotomy 06/13/19 14:10:08 Slp Teacher: KAY Modifier: BRYANTHE 1 <*> Procedure Endoretrogradecholangiopancreatography 2 <*> Procedure Endoretrogradecholangiopancreatography 3 <*> Procedure Endoretrogradecholangiopancreatography 4 <*> Procedure Endoretrogradecholangiopancreatography 5 <*> Procedure Endoretrogradecholangiopancreatography 06/13/19 13:58:53 Slp Teacher: KAY Modifier: BRYANTHE <+> 5 Case Attendee <+> 5 Role Performed <+> 5 Time In <+> 5 Procedure 06/13/19 13:56:00 Slp Teacher: COURTNEYE Modifier: BRYANTHE <+> 1 Procedure 2 <*> Procedure Endoretrogradecholangiopancreatography 3 <*> Procedure Endoretrogradecholangiopancreatography 4 <*> Procedure Endoretrogradecholangiopancreatography [facility] - Case Times Entry 1 Patient In Room Time 06/13/19 13:50:00 Out Room Time 06/13/19 14:20:00 Anesthesia Start Time 06/13/19 13:50:00 Stop Time 06/13/19 14:20:00 Surgery / Procedure Times Start Time 06/13/19 14:05:00 Stop Time 06/13/19 14:18:00 Last Modified By: MOISÉS ARRIAGA RN 06/13/19 14:18:33 [facility] - Case Times Audit 06/13/19 14:20:23 Slp Teacher: MONSEANTHE Modifier: BRYANTHE <+> 1 Out Room Time <+> 1 Stop Time 06/13/19 14:18:33 Slp Teacher: BRYANTHE Modifier: BRYANTHE <+> 1 Stop Time 06/13/19 14:05:03 Slp Teacher: BRYANTHE Modifier: BRYANTHE <+> 1 Start Time [facility] - Cautery Entry 1 ESU Identification Cautery Type Monopolar ESU Cautery Type ENDO CUT Comments ID Number ERBE ID Type Hospital Number Cautery Settings Cut Setting 2 Coag Setting 25 ESU Grounding Pad Ground Pad Type Argon Grounding Pad Type Bovie Comment Grounding Pad Site Right thigh Grounding Pad PAUL, JACHELE Applied By Grounding Pad Site Dry, Intact Skin Condition Before Cautery Grounding Pad Site Unchanged Skin Condition After Cautery Last Modified By: MOISÉS ARRIAGA RN 06/13/19 14:11:33 [facility] - Delays Entry 1 Delay Reason Other Duration 0 Minute(s) Comment NO DELAY Last Modified By: MOISÉS ARRIAGA RN 06/13/19 13:55:23 [facility] - Departure from OR Entry 1 Integumentary Assessment Integumentary WDL Assessment WDL Transfer/Handoff Transfer to PACU Phase I Handoff Method Bedside/Face to face Handoff Reported to Ijeoma Gonzalez RN Post-op Transport Stretcher/Gurney Via Patient Transport MOISÉS ARRIAGA RN, Accompanied by CHERYL ROSSI APRN-SATYA Last Modified By: MOISÉS ARRIAGA RN 06/13/19 14:19:42 [facility] - Endoscopy Details Entry 1 Abdomen Procedure Soft, Non-Tender, Assessment Non-distended Procedure Abdomen 06/13/19 13:55:00 Assessment D/T Radio Frequency Ablation Last Modified By: MOISÉS ARRIAGA RN 06/13/19 13:55:55 [facility] - Fire Risk Assessment Entry 1 Fire Info Surgical Site or 1- Yes Incision Above the Xyphoid Open O2 Source 1- Yes (Mask or Cannula) Available Ignition 1- Yes (ESU, Laser, Light Source) Fire Risk 3 Assessment Score Fire Score Fire Risk Yes Assessment Complete Fire Risk MOISÉS ARRIAGA RN Assessment Verified By Fire Risk 06/13/19 13:55:00 Assessment Verified Date/Time Fire Risk High Risk Protocol Yes Implemented Standard Fire Yes Safety Precautions Followed Last Modified By: MOISÉS ARRIAGA RN 06/13/19 13:55:33 [facility] - General Case Labor Relations Supervisor 1 Case Information OR Endo 06 [facility] Case Level 1 Room Verified Yes Wound Class II - Clean-Contaminated Specialty SN Gastroenterology Anesthesia Type MAC ASA Class 2 Diagnosis Preop Diagnosis Right Upper Quadrant Abdominal Pain, Sphincter of Ned Dysfunction Postop Same As Preop No Postop Diagnosis Sphincter of Ned Dysfunction Last Modified By: MOISÉS ARRIAGA RN 06/13/19 13:55:49 [facility] - General Case Data Audit 06/13/19 14:18:20 Slp Teacher: KAY Modifier: BRYANTHE <+> 1 Postop Diagnosis 06/13/19 14:04:37 Slp Teacher: KAY Modifier: BRYANTHE <+> 1 Preop Diagnosis [facility] - Intraoperative Assessment Entry 1 Valid History / Yes Physical in Chart Preoperative Yes Checklist Reviewed/Evaluated Allergies Reviewed Yes Patient is Latex No Sensitive Level of WDL Consciousness (WDL = Alert, Oriented to Person, Place, and Time) Present Upon IVs, ECG monitored Arrival to OR Last Modified By: MOISÉS ARRIAGA RN 06/13/19 13:56:13 [facility] - Intraoperative Equipment Entry 1 Type Scope Equipment Intraop Monitoring Electrocardiogram Three lead placement (ECG) Electrode Placement Blood Pressure Arm, left upper Location Pulse Oximeter Hand, right Probe Site Antiembolic Devices Scopes Flexible Endoscopes ERCP Scope Used Scope Serial [id number] Number/Identificatio n Number Photo/Video Documentation Photo Yes Video No Last Modified By: MOISÉS ARRIAGA RN 06/13/19 13:56:32 [facility] - Medication Admin Entry 1 Medication/Irrigant Isovue-300 50ml - [id number] Time Administered 06/13/19 14:16:00 Route of [id number] Administration Dose Dose 0.5 Unit of Measure ml Administered By PRECIOUS AGLARZA MD-GAAnthony Procedure Irrigation Last Modified By: MOISÉS ARRIAGA RN 06/13/19 14:20:09 [facility] - Medication Admin Audit 06/13/19 14:20:09 Slp Teacher: KAY Modifier: MONSEANTHE 1 <*> Medication/Irrigant Isovue-300 50ml - [id number] 1 <+> Dose 1 <+> Time Administered E Endo - Patient Positioning Entry 1 Procedure Endoretrogradecholangiop ancreatography, Sphincterotomy, Biliary Duct Dilation Body Position Prone Left Arm Position Tucked and padded at side Right Arm Position Tucked and padded at side Left Leg Position Uncrossed, parallel Right Leg Position Uncrossed, parallel Feet Uncrossed Yes Pressure Points Yes Checked Positioning Devices Roll (Other) Pad/Roll Location Under Right Side of Abdomen Positioned By MOISÉS ARRIAGA, BARBARA, PAUL, FLO MONTENEGRO JANICE R, COMMUNITY ORGANIZATION DIRECTOR-ANS Position Verified Positioning Yes Verified by Anesthesia Positioning Yes Verified by Surgeon Last Modified By: MOISÉS ARRIAGA RN 06/13/19 13:57:19 [facility] - Patient Positioning Audit 06/13/19 14:12:54 Slp Teacher: COURTNEYE Modifier: BRYANTHE 1 <*> Procedure Endoretrogradecholangiopancreatography, Sphincterotomy 06/13/19 14:12:38 Slp Teacher: COURTNEYE Modifier: BRYANTHE 1 <*> Procedure Endoretrogradecholangiopancreatography, Sphincterotomy, Biliary Duct Balloon Sweep 06/13/19 14:10:42 Slp Teacher: COURTNEYE Modifier: BRYANTHE 1 <*> Procedure Endoretrogradecholangiopancreatography, Sphincterotomy 06/13/19 14:10:10 Slp Teacher: KAY Modifier: KAY Siu <*> Procedure Endoretrogradecholangiopancreatography [facility] - Sign In Entry 1 Patient, Site, Yes Procedure Identified Surgical Consent Yes Confirmed Surgical Site N/A Marked by person performing procedure Allergies No Airway Hypothermia Risk Yes Warming Measures Yes Taken Last Modified By: MOISÉS ARRIAGA RN 06/13/19 13:57:35 [facility] - Sign Out Entry 1 RN Confirmation Surgical Yes Procedure(s) Identified Instrument, Sponge N/A and Sharps Counts Correct/Documented Equipment Problems N/A Documented Specimen Labeled N/A Correctly Urinary Catheter N/A Documented in IView Safety Checklist Yes Elements Complete? RN Sign Out MOISÉS ARRIAGA RN Signature RN Sign Out 06/13/19 14:18:00 Signature Date/Time Plan of Care Outcome - [...] objects Last Modified By: MOISÉS ARRIAGA RN 06/13/19 14:18:50 [facility] - Surgical Procedures Entry 1 Entry 2 Entry 3 Procedure Endoretrogradecholangiop Sphincterotomy Biliary Duct Dilation ancreatography Modifiers Additional Procedure Description Primary Procedure Yes No No Primary Surgeon PRECIOUS GALARZA, PRECIOUS GALARZA, PRECIOUS GALARZA MD-GAE MD-GAE MD-GAE Start 06/13/19 14:05:00 06/13/19 14:05:00 06/13/19 14:05:00 Stop 06/13/19 14:18:00 06/13/19 14:18:00 06/13/19 14:18:00 Physician States Cecum Reached Anesthesia Type MAC MAC MAC Specialty SN Gastroenterology SN Gastroenterology SN Gastroenterology Wound Class II - Clean-Contaminated II - Clean-Contaminated II - Clean-Contaminated Last Modified By: MOISÉS ARRIAGA, RN MOISÉS ARRIAGA, RN MOISÉS ARRIAGA, BARBARA 06/13/19 14:12:47 06/13/19 14:10:06 06/13/19 14:12:47 [facility] - Surgical Procedures Audit 06/13/19 14:18:37 Slp Teacher: KAY Modifier: BRYHONEYE <+> 1 Stop <+> 2 Stop <+> 3 Stop 06/13/19 14:12:47 Slp Teacher: KAY Modifier: BRYANTHE 1 <*> Procedure Endoretrogradecholangiopancreatography 1 <*> Primary Procedure Yes 1 <*> Primary Surgeon PRECIOUS GALARZA MD-GAE 1 <*> Specialty 1 <*> Start 06/13/19 14:05:00 1 <*> Wound Class II - Clean-Contaminated 1 <*> Anesthesia Type MAC 2 <*> Procedure Sphincterotomy 2 <*> Primary Procedure No 2 <*> Primary Surgeon PRECIOUS GALARZA MD-GAE 2 <*> Specialty 2 <*> Start 06/13/19 14:05:00 2 <*> Wound Class II - Clean-Contaminated 2 <*> Anesthesia Type MAC Entry 3 was deleted. Higher numbered entries shifted one position to fill the gap. <-> 3 Procedure Biliary Duct Balloon Sweep <-> 3 Primary Procedure No <-> 3 Primary Surgeon PRECIOUS GALARZA MD-GAE <-> 3 Specialty <-> 3 Start 06/13/19 14:05:00 <-> 3 Wound Class II - Clean-Contaminated <-> 3 Anesthesia Type MAC 06/13/19 14:10:38 Slp Teacher: KAY Modifier: COURTNEYE <+> 3 Procedure <+> 3 Primary Procedure <+> 3 Primary Surgeon <+> 3 Specialty <+> 3 Start <+> 3 Wound Class <+> 3 Anesthesia Type 06/13/19 14:10:06 Slp Teacher: KAY Modifier: BRYANTHE <+> 1 Start <+> 2 Procedure <+> 2 Primary Procedure <+> 2 Primary Surgeon <+> 2 Specialty <+> 2 Start <+> 2 Wound Class <+> 2 Anesthesia Type 06/13/19 13:57:56 Slp Teacher: KAY Modifier: BRYANTHE 1 <*> Procedure Endoretrogradecholangiopancreatography 1 <+> Specialty [facility] Endo - Time Out Entry 1 Procedure to be Endoretrogradecholangiop Performed ancreatography, Sphincterotomy, Biliary Duct Dilation Time Out Time Out Pause Time 06/13/19 14:04:00 All activity Yes suspended (unless life threatening [...] expected Last Modified By: MOISÉS ARRIAGA RN 06/13/19 14:12:54 [facility] Endo - Time Out Audit 06/13/19 14:12:54 Slp Teacher: COURTNEYE Modifier: BRYANTHE 1 <*> Procedure to be Performed Endoretrogradecholangiopancreatography, Sphincterotomy 06/13/19 14:12:38 Slp Teacher: BRYANTHE Modifier: BRYANTHE 1 <*> Procedure to be Performed Endoretrogradecholangiopancreatography, Sphincterotomy, Biliary Duct Balloon Sweep 06/13/19 14:10:43 Slp Teacher: BRYANTHE Modifier: BRYANTHE 1 <*> Procedure to be Performed Endoretrogradecholangiopancreatography, Sphincterotomy 06/13/19 14:10:10 Slp Teacher: BRYANTHE Modifier: BRYANTHE 1 <*> Procedure to be Performed Endoretrogradecholangiopancreatography [facility] Endo - X-Ray and Images Entry 1 X-Ray/Imaging Type Fluoroscopy Fluoroscopy Type C-Arm Stitchdown Toe Former Name Bird Stringer, TRICOT KNITTER Exposure Time 0.7 min Last Modified By: MOISÉS ARRIAGA RN 06/13/19 14:18:31 [facility] Endo - X-Ray and Images Audit 06/13/19 14:18:31 Slp Teacher: KAY Modifier: BRYANTHE <+> 1 Exposure Time 06/13/19 13:59:15 Slp Teacher: MONSEANTHE Modifier: BRYANTHE <+> 1 Stitchdown Toe Former Name Case Comments <None> Finalized By: MOISÉS ARRIAGA, RN Document Signatures Signed By: MOISÉS ARRIAGA RN 06/13/19 14:21 Electronically signed by [facility] Conversion Security Shift Manager Cerner at 11/18/2022 7:51 AM CDT documented in this encounter Plan of Treatment Not on file documented as of this encounter Visit Diagnoses Not on filedocumented in this encounter
--- OUTSIDE RECORDS SUMMARY | 2025-06-11 09:48 | XMS_ITS | Encounter Summary ---
Author Organization [employer] ([place], [place], [place], [place], [place]) Address [address] [place] [address] Care Team Providers Care Plate Glass Polisher Name Role Phone Unavailable Primary Care Provider Unavailabl e Encounter Details Date Type Department Care Team (Late st Contact Info) Description 06/13/2019 Transcribed Document [facility] [place] [facility] [place] [address] ProviderRod MD [address] [place] [phone] Social History Tobacco Use Types Packs/Day Years Used Date Smoking Tobacco: Never Assessed Sex and Gender Information Value Date Recorded Sex Assigned at Male 01/26/2022 5:05 PM CDT Legal Sex Male 5:05 PM CDT Gender Identity Male 01/26/2022 5:05 PM CDT Sexual Orientation Not on file documented as of this encounter Miscellaneous Notes * Cerner Conversion Note - Rod Hills MD - 06/13/2019 2:37 PM ANTIQUE FURNITURE REPRODUCER Patient: JULIO OWEN Age: 59 years Sex: Male : 1960 Associated Diagnoses: None Author: PRECIOUS VALDES MD-[facility] Procedure: Endoscopic retrograde cholangiopancreatography with biliary sphincterotomy and TTS balloon dilation/sphincteroplasty Endoscopist: Precious Valdes II, M.D. Referring Physician: Jaspreet Downs M.D. Date of Procedure: June 13, 2019 Equipment: Olympus 180 side-viewing duodenoscope Method of Sedation: MAC sedation Indication: Mr. Owen is a 59-year-old gentleman with recurrent right upper quadrant abdominal pain. The patient did have complete resolution of symptoms with ERCP and biliary sphincterotomy for sphincter of Oddi dysfunction in August 2018. He did have recurrence of symptoms 2 or 3 months later. We repeated an ERCP in December 2018 and he had extension of sphincterotomy. He has not had complete resolution since that time. He does get some bloating. He has been treated for hepatic flexure syndrome and takes a fiber bowel regimen (MiraLAX plus Konsyl) and buspirone. His liver and pancreatic chemistries have been normal. Cardiac and long assessment prior to the examination was stable Findings: The side-viewing endoscope was passed directly into the upper esophagus and advanced to the second portion of the duodenum. There was some bile reflux with linear reactive gastropathy. The esophagus and duodenum were normal. The common bile duct was selectively cannulated. The cholangiogram did show a mildly dilated 10 mm common bile duct with normal filling of the intrahepatic biliary system. There were no strictures or filling defects. There was some delayed drainage of contrast and bile from the biliary system. The intraduodenal segment of the bile duct and ampulla was studied and extension of the biliary sphincterotomy was performed carefully. There was some extravasation of bile and contrast. After maximal sphincterotomy, a sphincteroplasty was performed with TTS balloon dilation of the sphincter of Oddi/ampulla using an 8 mm TTS hydrostatic dilating balloon. After dilation there was excellent extravasation of bile and contrast. The pancreatic duct was not cannulated intentionally. Impression: 1. 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 2 achieve further improvement, I did extend the sphincterotomy maximally and did sphincteroplasty. I will follow him for clinical improvement. If he has recurrent or ongoing symptoms, I will recommend opinion at tertiary center. documented in this encounter Plan of Treatment Not on file documented as of this encounter Visit Diagnoses Not on filedocumented in this encounter
--- OUTSIDE RECORDS SUMMARY | 2025-06-11 09:48 | XMS_ITS | Encounter Summary ---
Author Organization [employer] ([place], [place], [place], [place], [place]) Address [address] [place] [address] Care Team Providers Care Marketing Reporting Analyst Name Role Phone Unavailable Primary Care Provider Unavailabl e Encounter Details Date Type Department Care Team (Late st Contact Info) Description 06/13/2019 Transcribed Document [facility] [place] Family Medicine [address] [place] [address] ProviderRod MD [address] [place] [address] Social History Tobacco Use Types [...] Note - Rod Hills MD - 06/13/2019 2:38 PM SHIPPING CLERK Patient Education Materials Follows: Endoscopic Retrograde Cholangiopancreatogram, Care After This sheet gives you information about how to care for yourself after your procedure. Your health care provider may also give you more specific instructions. If you have problems or questions, contact your health care provider. What can I expect after the procedure? After the procedure, it is common to have: ??? Soreness in your throat. ??? Nausea. ??? Bloating. ??? Dizziness. ??? Tiredness (fatigue). Follow these instructions at home: ??? Take [id number] and prescription medicines only as told by your health care provider. ??? Do not drive for 24 hours if you were given a medicine to help you relax (sedative) during your procedure. Have someone stay with you for 24 hours after the procedure. ??? Return to your normal activities as told by your health care provider. Ask your health care provider what activities are safe for you. ??? Return to eating what you normally do as soon as you feel well enough or as told by your health care provider. ??? Keep all follow-up visits as told by your health care provider. This is important. Contact a health care provider if: ??? You have pain in your abdomen that does not get better with medicine. ??? You develop signs of infection, such as: ? Chills. ? Feeling unwell. Get help right away if: ??? You have difficulty swallowing. ??? You have worsening pain in your throat, chest, or abdomen. ??? You vomit bright red blood or a substance that looks like coffee grounds. ??? You have bloody or very black stools. ??? You have a fever. ??? You have a sudden increase in swelling (bloating) in your abdomen. Summary ??? After the procedure, it is common to feel tired and to have some discomfort in your throat. ??? Contact your health care provider if you have signs of infection?such as chills or feeling unwell?or if you have pain that does not improve with medicine. ??? Get help right away if you have trouble swallowing, worsening pain, bloody or black vomit, bloody or black stools, a fever, or increased swelling in your abdomen. ??? Keep all follow-up visits as told by your health care provider. This is important. This information is not intended to replace advice given to you by your health care provider. Make sure you discuss any questions you have with your health care provider. Document Released: 05/08/2014 Document Revised: 06/06/2017 Document Reviewed: 06/06/2017 [employer] Patient Education ? 2019 [employer] documented in this encounter Plan of Treatment Not on file documented as of this encounter Visit Diagnoses Not on filedocumented in this encounter
--- OUTSIDE RECORDS SUMMARY | 2025-06-11 09:48 | XMS_ITS | Encounter Summary ---
Author Organization [employer] ([place], [place], [place], [place], [place]) Address [address] [place] [address] Care Team Providers Care Tunneling Machine Operator Name Role Phone Unavailable Primary Care Provider Unavailabl e Encounter Details Date Type Department Care Team (Late st Contact Info) Description 01/24/2019 Transcribed Document [facility] [place] [address] [place] [address] ProviderRod MD [facility] [place] [address] Social History Tobacco Use Types [...] Note - Rod Hills MD - 01/24/2019 1:30 PM CDT [facility] PreOp Summary Primary Physician: PRECIOUS GALARZA MD-GAE Finalized Date/Time: 01/24/19 12:00:21 Pt. Name: JULIO OWEN /Sex: 1960 Male Med Rec #: [id number] Physician: PRECIOUS GALARZA MD-GAE Financial #: [id number] Pt. Type: O [place] [facility] [place] Admit/Disch: 01/24/19 11:13:00 - Institution: [facility] PreOp Case Times Entry 1 In Preop 01/24/19 11:37:00 Ready for Holding n/a Room Patient Ready for 01/24/19 11:58:00 Surgery Patient Out of Preop 01/24/19 11:58:00 Patient Out of n/a Holding Room [facility] PreOp Case Times Audit 01/24/19 12:00:18 Office Support Assistant: JUAN DAVIDALVIN Modifier: HEATHERLAWRENCE <+> 1 Patient Out of Preop <+> 1 Patient Ready for Surgery Finalized By: Bonnie Steven Rn Document Signatures Signed By: Bonnie Steven Rn 01/24/19 12:00 documented in this encounter Plan of Treatment Not on file documented as of this encounter Visit Diagnoses Not on filedocumented in this encounter
--- OUTSIDE RECORDS SUMMARY | 2025-06-11 09:48 | XMS_ITS | Encounter Summary ---
Author Organization [employer] ([place], [place], [place], [place], [place]) Address [address] [place] [address] Care Team Providers Care Bowling Teacher Name Role Phone Unavailable Primary Care Provider Unavailabl e Encounter Details Date Type Department Care Team (Late st Contact Info) Description 01/24/2019 Transcribed Document [facility] Family Medicine [facility] [place] [address] ProviderRod MD [address] [place] [address] Social History Tobacco Use Types Packs/Day [...] Note - Rod Hills MD - 01/24/2019 2:35 PM CDT Patient Education Materials Follows: Endoscopic Retrograde Cholangiopancreatography [...] 05/08/2014 Elsevier Interactive Patient Education ? 2017 [employer] documented in this encounter Plan of Treatment Not on file documented as of this encounter Visit Diagnoses Not on filedocumented in this encounter
--- OUTSIDE RECORDS SUMMARY | 2025-06-11 09:48 | XMS_ITS | Encounter Summary ---
Author Organization [employer] ([place], [place], [place], [place], [place]) Address [address] [place] [address] Care Team Providers Care Instrumentation Technologist Name Role Phone Unavailable Primary Care Provider Unavailabl e Encounter Details Date Type Department Care Team (Late st Contact Info) Description 08/09/2018 Transcribed Document [facility] [place] [facility] [place] [address] ProviderRod MD [address] [place] [address] Social History Tobacco Use Types Packs/Day [...] Rod Hills MD - 08/09/2018 3:52 PM IMAGING AIDE [address] , [place] [address] Patient Copy Patient Information: Name: JULIO OWEN Current Date: 08/09/2018 15:52:54 : 1960 Patient Address: [address] [place] [id number] Patient Attending Physician: PRECIOUS GLAARZA MD-REGINALDO Primary Care Provider: ELY NASH [facility] Primary Care Provider Discharge Diagnosis: Weight on Admission: 186 lb, 0 oz Comment: Follow-up Instructions: With: Address: When: PRECIOUS GALARZA [address] [facility], [address] [place] [phone] [facility] (1) Within As needed Comments: call for any problems clear liquids today Discharge Instructions: Diet after Discharge: Other: clear liquids today Activity after Discharge: Rest and relax today, No strenuous activities Driving after Discharge: Do not drive Showering/Bathing: May shower Immunizations Documented During Stay: No Immunizations Found [...] provider. Document Released: 05/08/2014 Document Reviewed: 05/08/2014 A[employer]ix Interactive Patient Education ? 2017 [employer] CIGARETTE SMOKING: The facts are clear, cigarette smoking will shorten your life. Smoking can cause many illnesses along the way. As a healthcare provider, we recommend that you stop smoking. Assistance with quitting is available by contacting 1-825-ZAUP-NOW. This is a free resource providing counseling, [...] Be sure to sign up for the My [facility] patient portal, which gives you 21/02 access to your medical information ??? including these discharge instructions ??? using your computer, smartphone, or tablet. Just go to [employer] to get started. Questions? Call . [facility] would like to thank you for allowing us to assist you with your healthcare needs. BRAYDEN Weiner BENJAMIN DAV, (or national account representative) have received the above patient education materials/instructions and have verbalized understanding: Patient Signature _ Date/Time Patient Form Setter/Driver Signature (if needed) Date/Time Clinician/Hospital Form Setter/Driver Signature (if needed) Date/Time documented in this encounter Plan of Treatment Not on file documented as of this encounter Visit Diagnoses Not on filedocumented in this encounter
--- OUTSIDE RECORDS SUMMARY | 2025-06-11 09:48 | XMS_ITS | Data Portability ---
Author Organization [place] [facility] Address [address] [facility] [address] [place] [address] Assessment No assessment recorded. Plan of Treatment Reminders Order Date Submit Date Provider Last Modified By Organization Details Last Modified Time Details Appointments None recorded. Lab gas panel, arterial blood [address] [facility], [address] [place] [address], [phone], 12:07:07 gas panel, arterial blood [address] [facility], [address] [place] [address], [phone], 12:07:07 Referral None recorded. Procedures None recorded. Surgeries None recorded. Imaging None recorded. Medication Orders None recorded. Patient TargetsNo targets recorded. Patient InstructionsNo instructions recorded. Reason for Referral None Reported. Results Created Date Observation Date Name Description Value Unit Range Abnormal Flag Note LastModifiedBy Organization Detail LastModifiedTime 05/06/2005/06/2022 gas panel , arter ial blood O2 21 Not Available [facility] [address] [place] [address], [phone], 05/06/2022 12:36:26 05/06/20 22 05/06/2022 gas panel , arter ial blood pH 7.35 7.35 - 7.45 Not Available [facility] [address] [place] [address], [phone], 05/06/2022 12:36:26 05/06/20 22 05/06/2022 gas panel , arter ial blood pCO2 45.9 mmHg 35 - 45 Not Available [facility] [address] [facility] [address], [place], [address], 05/06/2022 12:36:26 05/06/20 22 05/06/2022 gas panel , arter ial blood pO2 53 mmHg 80 - 100 Not Available [facility] [address] [facility] [address], [place], [address], 05/06/2022 12:36:26 05/06/2005/06/2022 gas panel , arter ial blood HCO3 24.9 22 - 28 Not Available [facility] [address] [facility] [address], [place], [address], 05/06/2022 12:36:26 05/06/20 22 05/06/2022 gas panel , arter ial blood BE -0.5 +/-2 Not Available [facility] [address] [facility] [address], [place], [address], 05/06/2022 12:36:26 05/06/20 22 05/06/2022 gas panel , arter ial blood O2 sat 85.2 % >95 Not Available [facility] [address] [facility] [address], [place], [address], 05/06/2022 12:36:26 05/06/20 22 05/06/2022 gas panel , arter ial blood thb 14.4 g% Not Available [facility] [address] [facility] [address], [place], [address], 05/06/2022 12:36:26 05/06/20 22 05/06/2022 gas panel , arter ial blood hbco 1.0 % <2 Not Available [facility] [address] [facility] [address], [place], [address], 05/06/2022 12:36:26 05/06/20 22 05/06/2022 gas panel , arter ial blood O2 21 Not Available [facility] [address] [facility] [address], [place], [address], 05/06/2022 10:39:21 05/06/20 22 05/06/2022 gas panel , arter ial blood pH 7.38 7.35 - 7.45 Not Available [facility] [address] [facility] [address], [place], [address], 05/06/2022 10:39:21 05/06/20 22 05/06/2022 gas panel , arter ial blood pCO2 41.7 mmHg 35 - 45 Not Available [facility] [address] [facility] [address], [place], [address], 05/06/2022 10:39:21 05/06/20 22 05/06/2022 gas panel , arter ial blood pO2 70 mmHg 80 - 100 Not Available [facility] [address] [facility] [address], [place], [address], 05/06/2022 10:39:21 05/06/20 22 05/06/2022 gas panel , arter ial blood HCO3 24.0 22 - 28 Not Available [facility] [address] [facility] [address], [place], [address], 05/06/2022 10:39:21 05/06/20 22 05/06/2022 gas panel , arter ial blood BE -0.7 +/-2 Not Available [facility] [address] [facility] [address], [place], [address], 05/06/2022 10:39:21 05/06/20 22 05/06/2022 gas panel , arter ial blood O2 sat 94.1 % >95 Not Available [facility] [address] [facility] [address], [place], [address], 05/06/2022 10:39:21 05/06/20 22 05/06/2022 gas panel , arter ial blood thb 14.1 g% Not Available [facility] [address] [place] [address], [place], [address], 05/06/2022 10:39:21 05/06/20 22 05/06/2022 gas panel , arter ial blood hbco 0.6 % <2 Not Available [facility] [address] [place] [address], [place], [address], 05/06/2022 10:39:21 05/06/20 22 05/06/2022 XR, chest [facility] [address] [place] [address] [address] [place] [address] Patijannie t Name: KAHLIL jeff : 962 Patijannie jeff [facility] er: JIGNESH FUENTES EXAM DATE: 2021 EXAM: XR CHEST SILICO SIS 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 IMAGES PROVID ED: Two PA views of the chest. COMPAR MILI: None. FINDIN GS: Heart size is within normal limits . Coarse nodula rity is seen in both lungs. No focal lesion is seen. IMPRES ZOË: No signif icant abnorm ality. 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 IMAGES PROVIDED: Two PA views of the chest. COMPARISON: None. FINDINGS: Heart size is within normal limits. Coarse nodularity is seen in both lungs. No focal lesion is seen. IMPRESSION: No significant abnormality. Interpreted By: Mikey Nielson MD ESH FUENTES MD [address] [place] [address], [phone], [facility] 05/13/2022 12:05:15 Procedures Surgical History Date Name Laterality Status Provider Name and Address Organization Details Recorded Time 05/06/20 22 Airway Resistance completed [facility] 05/06/2022 11:00:48 05/06/20 22 Diffusion Capacity completed [facility] 05/06/2022 11:00:49 05/06/20 22 Lung Volumes, Plethysmography completed [facility] 05/06/2022 11:00:51 05/06/20 22 Maximal Voluntary Ventilation completed [facility] 05/06/2022 11:00:41 05/06/20 22 Spirometry with Bronchodilator completed [facility] 05/06/2022 11:00:47 tonsillectomy completed [facility] 05/06/2022 10:38:08 cholecystectomy completed [facility] 05/06/2022 10:38:15 revision of repair of rotator cuff completed [facility] 05/06/2022 10:38:27 Imaging Results None recorded. Procedure Notes None recorded. Medical Equipment None Reported. Allergies No known drug allergies Medications Name Sig Start Date Stop Date Status Note LastModified by Organization Details LastModified Time potassium acetate active Not Available Not Available Not Available omeprazole active Not Available Not Av ailable Not Available famotidine active Not Available Not Av ailable Not Available furosemide active Not Available Not Av ailable Not Available lisinopril active Not Available Not Av ailable Not Available azelastine active Not Available Not Av ailable Not Available gabapentin active Not Available Not Av ailable Not Available Vitamin B12 active Not Available Not A vailable Not Available clopidogrel 300 mg tablet Take by oral route. active Not Available Not Available No t Available zolpidem [address] 1 tablet every day by sublingua l route. active Not Available Not Available No t Available Breo Ellipta 100 mcg-25 mcg/dose powder for inhalation Inhale 1 puff every day by inhalatio n route. 05/06 completed Not Available Not Available Not Available Allergy Relief (fluticason e) 50 mcg/actuati on nasal spray,suspe nsion [place] 1 spray every day by intranasa l route. active Not Available Not Available No t Available oxygen active Not Available Not Availa ble Not Available Trelegy Ellipta 100 mcg-62.5 mcg-25 mcg powder for inhalation Inhale 1 puff every day by inhalatio n route. active Not Available Not Available No t Available metoprolol succinate ER 100 mg capsule sprinkle, ext. release 24 hr Take 1 capsule every day by oral route. active Not Available Not Available No t Available albuterol sulf 90 mcg/actuati on breath activated powder inhaler,sen sor Inhale 2 puffs every 4 hours by inhalatio n route. active Not Available Not Available No t Available Vitals Date Recorded Body height Body mass index (BMI) Body weight Heart rate Oxygen saturation Oxygen saturation in Arterial blood by Pulse oximetry Systolic And Diastolic Provider Name and Address Organization Details Last Updated DateTime 2 162.56 cm 38.3 kg/m2 857093. 1 g 87 /min 97 % 97 % 118/70 mm[Hg] Cynthia Sánchez [facility] 2 10:29:08 Social History Question Answer Notes LastModified by Organizat ion Details LastModified Time Tobacco Smoking Status Former Smoker STOPPED IN 1997 Cynthia Sánchez [facility] 05/06/2022 10:37:49 How Many Years Have You Smoked Tobacco? 10 1PPD [email or web address] Information not available 05/06/2022 Sex: Unknown Functional Status None recorded. Mental Status None recorded. Family History Relationship Description Onset Age of this Age Resolved Age Notes LastModified by Organization Details LastModified Time Unspecified Relation Family history of malignant neoplasm [email or web address] Not available 05/06 10:37:30 Unspecified Relation Heart disease [email or web address] Not available 05/06 10:37:35 Medical History Condition Response Black Lung Y Hypertension Y Pneumonia Y GERD/Reflux Y Past Encounters Encounter ID Performer Location Encounter Start Date Encounter Closed Date Diagnosis/Indication Diagnosis SNOMED-CT Code Diagnosis ICD10 Code Diagnosis IMO Codes Diagnosis Note [id number] JIGNESH FUENTES MD [facility] [address] [facility], [address] [place] [address] 05/06/2022 10:01:59 05/06/2022 13:51:53 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 Health Concerns Section Related Observation LastModified by Organization Detai ls LastModified Time None Recorded Concern Status LastModified by Organization Details LastModified Time None Recorded Advance Directives Directive None Recorded Payers Insurance Date Sequence Insurance Name Policy Number Policy Johnson Covered Member ID Johnson Member ID Guarantor Name 09/21/2022 1 UNSPECIFIED REMIT PAYOR Jluio Owen 09/21/2022 1 UNSPECIFIED REMIT PAYOR Julio Owen 09/21/2022 1 UNSPECIFIED REMIT PAYOR Julio Owen 03/18/2022 [facility] Julio Owen [id number] Julio Owen 05/03/2022 1 [place] [id number] Julio Owen [id number] Julio Owen
--- OUTSIDE RECORDS SUMMARY | 2025-06-11 09:48 | XMS_ITS | Encounter Summary ---
Author Organization [employer] ([place], [place], [place], [place], [place]) Address [address] [place] [address] Care Team Providers Care Seed Packer Name Role Phone Unavailable Primary Care Provider Unavailabl e Encounter Details Date Type Department Care Team (Late st Contact Info) Description 06/13/2019 Transcribed Document [facility] [place] Medicine [address] [place] [address] ProviderRod MD [address] [place] [address] Social History Tobacco Use Types [...] Note - Rod Hills MD - 06/13/2019 2:57 PM COMPUTER SCIENCE PROFESSOR [place] [id number] JULIO OWEN :1960 Visit Time:06/13/2019 What to do next Your Diagnosis Right upper quadrant pain, Right upper quadrant pain Instructions From Your Care Team Diet after Discharge: Full liquid diet, Do not drink any alcoholic beverages, Drink at least 8-10 glasses of water per day Fluid Restriction after Discharge: _ Activity after Discharge: _, Rest and relax today, No strenuous activity Lifting Restrictions: No heavy lifting over 10 pounds Weight Bearing: _ Bedrest: _ Driving after Discharge: Do not drive May Return to Work/School: Tomorrow Showering/Bathing: May shower, _ Notify Provider of: Any questions or concerns Wound/Incision Care after Discharge: _, _ Medical Equipment for Home Use: Home Health Services: Community Services: Follow-Up Appointments Follow Up with PRECIOUS GALARZA MD-GAE When Only if needed Comments Follow-up as instructed Where: [address] [place], [place] [id number]- Medications What How Much When Instructions Next Dose zolpidem At Bedtime bifidobacterium-lactobacillus (Probiotic Formula oral capsule) Oral Every Day busPIRone (busPIRone 10 mg oral tablet) 1 Tablet(s) Oral Three Times A Day clopidogrel (clopidogrel 75 mg oral tablet) 1 Tablet(s) Oral Every Day esomeprazole (NexIUM) otc Oral Every Day hyoscyamine (hyoscyamine 0.125 mg oral tablet) 1 Tablet(s) Oral Four Times A Day as needed for as needed for spasm multivitamin (Multi Vitamin+) omega-3 polyunsaturated fatty acids (Fish Oil) Oral pancrelipase (Creon 36,000 units oral delayed release capsule) Oral Three Times A Day prucalopride (Motegrity 2 mg oral tablet) Oral Every Day ubiquinone (CoQ10) Oral Every Day Take your medications faithfully. Do NOT skip [...] per pharmacy guidance. Education Materials Endoscopic Retrograde Cholangiopancreatogram, Care After This sheet [...] Follow these instructions at home: ??? Take dage-scr-dkueuux and prescription medicines only as told by [...] care provider if you have signs of infection???such as chills or feeling unwell???or if you have pain that does not [...] 05/08/2014 Document Revised: 06/06/2017 Document Reviewed: 06/06/2017 [employer] Interactive Patient Education ?? 2019 [employer]. Emergency Awareness and Preventative Care STROKE is [...] Assistance with quitting is available by contacting 5-939-ZOIH-NOW. This is a free resource providing counseling, [...] This Visit (last charted value for your 06/13/2019 visit) No Laboratory or Other Results This Visit Patient Name:JULIO OWEN I have received this information and was given the opportunity to ask questions. Patient/Funeral Home Attendant Name: Patient/Funeral Home Attendant Signature: Relationship to Patient: Clinician/Hospital Funeral Home Attendant Signature: Date: documented in this encounter Plan of Treatment Not on file documented as of this encounter Visit Diagnoses Not on filedocumented in this encounter
--- OUTSIDE RECORDS SUMMARY | 2025-06-11 09:48 | XMS_ITS | Encounter Summary ---
Author Organization [employer] ([place], [place], [place], [place], [place]) Address [address] [place] [address] Care Team Providers Care Retirement Manager Name Role Phone Unavailable Primary Care Provider Unavailabl e Encounter Details Date Type Department Care Team (Late st Contact Info) Description 01/24/2019 Transcribed Document [facility] [place] [facility] [place] [address] ProviderRod MD [address] [place] [id number] Social History Tobacco Use Types Packs/Day Years Used Date Smoking Tobacco: Never Assessed Sex and Gender Information Value Date Recorded Sex Assigned at Male 01/26/2022 5:05 PM CDT Legal Sex Male 5:05 PM CDT Gender Identity Male 01/26/2022 5:05 PM CDT Sexual Orientation Not on file documented as of this encounter Miscellaneous Notes * Cerner Conversion Note - Rod Hills MD - 01/24/2019 1:55 PM CDT DATE OF PROCEDURE: 01/24/2019 PROCEDURE: Endoscopic retrograde cholangiography with biliary sphincterotomy and balloon extraction. SURGEON: Endoscopist: Ozzie Valdes MD REFERRING PHYSICIAN: Tyron Downs MD PREOPERATIVE DIAGNOSIS(ES): POSTOPERATIVE DIAGNOSIS(ES): EQUIPMENT: Olympus side-viewing duodenoscope. MEDICATION: MAC sedation. INDICATION: Mr. Olvera is a 58-year-old gentleman with persistent right upper quadrant abdominal pain that radiates into the right flank and into the back. When the pain comes on, he does get some itching in this region. He has a history of sphincter of Oddi dysfunction and had ERCP in 2004 and cholecystectomy at that time. He did have an ERCP in August 2018 and had biliary sphincterotomy. He did have improvement of symptoms with resolution of pain, but this did recur after a couple of months. He does feel that this is aggravated by stress. He has darker stools. Cardiac and lung assessment prior to the examination was stable. FINDINGS: The scope was passed directly into the upper esophagus and advanced to the third portion of the duodenum. The postbulbar duodenum and duodenal bulb were normal. There was bile reflux within the body and fundus with mild reactive gastropathy. The esophagus was normal. The common bile duct was selectively cannulated. The cholangiogram showed some delayed drainage of contrast and bile from the biliary system. Extension of biliary sphincterotomy was performed. After extension of biliary sphincterotomy, there was some contrast and debris and yellow sludge that exuded from the bile duct, so a 9-12 mm balloon was placed into the biliary system and swept with removal of mostly bile, but some minor debris. The cholangiogram did show a 7-8 mm common bile duct with prior cholecystectomy. The cystic duct stump was normal. The intrahepatic biliary system was normal. There were no obvious filling defects or strictures. The pancreatic duct was not cannulated intentionally. IMPRESSION: Minor choledocholithiasis with some sphincter of Oddi dysfunction, status post biliary sphincterotomy and balloon extraction. PLAN: I will follow up the patient clinically for clinical improvement. I will discuss the findings with patient and family. Ozzie Valdes M.D. Dict: 01/24/2019 13:55:53 Trans: 01/24/2019 16:27:51 CC1: Ozzie Valdes M.D. CC2: Dr. Tyron Downs. documented in this encounter Plan of Treatment Not on file documented as of this encounter Visit Diagnoses Not on filedocumented in this encounter
--- OUTSIDE RECORDS SUMMARY | 2025-06-11 09:48 | XMS_ITS | Encounter Summary ---
Author Organization [employer] ([place], [place], [place], [place], [place]) Address [address] [place] [address] Care Team Providers Care Sensitized Paper Tester Name Role Phone Unavailable Primary Care Provider Unavailabl e Encounter Details Date Type Department Care Team (Late st Contact Info) Description 08/09/2018 Transcribed Document [facility] [place] Family Medicine [address] [place] [address] ProviderRod MD [address] [place] [address] Social History Tobacco Use Types [...] Note - Rod Hills MD - 08/09/2018 1:13 PM MEDICAL LAB SCIENTIST Pre Procedure Adult Entered On: 08/09/2018 13:19 EST Performed On: 08/09/2018 13:13 EST by Ijeoma Gonzalez RN Height and Weight, Clinical Dosing Height Source : Stated Height Entry Format : [place] Height, Feet : 5 ft(Converted to: 152 cm, 60 Inch) Height, Inches : 6 Inch(Converted to: 0 ft 6 Inch, 15.24 cm) Clinical Height : 167.64 cm Weight Source : Standing scale Weight Entry Format : [place] Clinical Dosing Weight : 84.55 kg Weight, Pounds : 186 lb Body Surface Area (BSA) : 1.94 m2 Body Mass Index : 30.1 kg/m2 (HI) [place] Body Weight : 63 kg Ijeoma Gonzalez RN - 08/09/2018 13:13 EST Health Histories Smoking Status : Former smoker, quit more than 30 days ago Smokeless Tobacco Status : Never Ijeoma Gonzalez RN - 08/09/2018 13:13 EST Social History (As Of: 08/09/2018 13:19:44 EST) Tobacco: Former smoker, quit more than [...] Region : No Tuberculosis Symptoms : None Ijeoma Gonzalez RN - 08/09/2018 13:13 EST Anesthesia/Transfusion History Family History of Anesthesia Reaction : No prior transfusion(s) Transfusion History : Prior anesthesia reaction Family History of Anesthesia Reaction : None Ijeoma Gonzalez RN - 08/09/2018 13:13 EST Functional Assessment Living Situation : Home Patient Lives With : Alone Current Home Treatments : CPAP Ijeoma Gonzalez RN - 08/09/2018 13:13 EST Psychosocial History Currently in Unsafe Situation : No Tried to Harm Yourself in the Past? : No Thoughts of Harming/Killing Yourself : No Ijeoma Gonzalez RN - 08/09/2018 13:13 EST Advance Directive Patient has Advance Directive *Q : No, patient refuses Advance Directive information Ijeoma Gonzalez RN - 08/09/2018 13:13 EST General Info Arrived From : Home Mode of Arrival on Unit : Ambulatory Want Family/Rep/Phys Notified of Admit : Yes Name/Contact Info Fam/Rep Notified Adm : Mikhail Olvera Name/Contact Info Physician Notified Adm : Tyron Downs, Emergency Contact #1 : Lena Olvera Emergency Contact #1 Emergency Contact #1 Relationship : ex spouse Emergency Contact #2 : na Emergency Contact #2 Phone Number : na Emergency Contact #2 Relationship : na Primary Language : Romanian Communication Barrier : None Ijeoma Gonzalez RN - 08/09/2018 13:13 EST Sleep Apnea Risk Assmt Hx of Obstructive Sleep Apnea Diagnosis : Yes BiPAP/CPAP Ordered for Home Use : Yes BiPAP/CPAP Used at Home : Yes BiPAP/CPAP Home Settings : NA Home BiPAP/CPAP Device With Patient : No Ijeoma Gonzalez RN - 08/09/2018 13:13 EST Gerald Scale Gerald Sensory Perception : No impairment Gerald Moisture : Rarely moist Gerald Activity : Walks frequently Gerald Mobility : No limitation Gerald Nutrition : Adequate Gerald Friction and Shear : No apparent problem Gerald Score : 22 Ijeoma Gonzalez RN - 08/09/2018 13:13 EST Fall Risk Scales ABCs Fall Injury [...] Scale Risk Level : 0-24 Low Risk [place] Fall Interventions : Adequate lighting, Bed in low position, Personal items within reach, Room free of clutter/spills, Upper side-rails up, Wheels locked Ijeoma Gonzalez RN - 08/09/2018 13:13 EST Valuables and Belongings Valuables and Belongings : Clothing, Personal devices, Personal items Clothing : Common streetwear Clothing Disposition : Bedside Personal Device Disposition : With patient Personal Devices : Glasses Personal Items : Wallet Personal Items Disposition : Bedside Ijeoma Gonzalez RN - 08/09/2018 13:13 EST Electronically signed by [facility] Conversion General Office Associate Cerner at 11/18/2022 7:52 AM CDT documented in this encounter Plan of Treatment Not on file documented as of this encounter Visit Diagnoses Not on filedocumented in this encounter
--- OUTSIDE RECORDS SUMMARY | 2025-06-11 09:50 | XMS_ITS | Clinical Summary ---
Author Organization [employer] ([place], [place], [place], [place], [place]) Address [address] [place] [address] Care Team Providers Care Assigner Name Role Phone Unavailable Primary Care Provider [...]
[2025-06-11 11:35] LABS: Alanine Aminotransferase 22 U/L (12-78); Albumin Level 4.6 g/dl (3.5-5.0); Albumin/Globulin Ratio 1.3 (1.1-1.8); Alkaline Phosphatase 101 U/L (38-126); Anion Gap 13.3 mEq/L (5-15); Aspartate Amino Transferase 30 U/L (17-59); Bilirubin,Total 0.5 mg/dl (0.2-1.3); Blood Urea Nitrogen 21 mg/dl (9-20); Calcium 9.8 mg/dl (8.4-10.2); Carbon Dioxide 28 mmol/L (22.0-30.0); Chloride 101 mmol/L (98-107); Creatinine,Serum 0.80 mg/dl (0.66-1.25); Estimated Glomerular Filt Rate 97 ml/min (>60); GFR (African American) 118 ML/MIN (>60); Globulin 3.6 g/dL (1.3-3.2); Glucose 99 mg/dl (74-100); Potassium 4.3 mmoL/L (3.5-5.1); Sodium 138 mmol/L (136-145); Total Protein,Serum 8.2 g/dl (6.3-8.2)
== END 2025-06-11 23:59 | disposition home or self-care (01) ==
PROVIDERS: Visit Provider Internal Medicine Gastroenterology
DX: R10.11 Right upper quadrant pain (principal)
CPT/HCPCS: 36415; 80053